=== PATIENT | female | born 1985 | race African-American/Black ===

== ENCOUNTER → 2020-05-08 | Outpatient (CLI) | payer OTHER ==
[2020-05-08 09:27] LABS: THYROID STIMULATING HORMONE 2.54 uIU/ML (0.358-3.740)
[2020-05-08 10:02] LABS: PROGESTERONE 41.39 NG/ML
[2020-05-08 10:03] LABS: ESTRADIOL 188.1 PG/ML
== END ==
LOC: M LAB 07:59
PROVIDERS: ATTEND Obstetrics & Gynecology Reproductive Endocrinology
DX: E28.9 Ovarian dysfunction, unspecified (principal)

== ENCOUNTER → 2020-05-11 | Outpatient (CLI) | payer OTHER ==
[2020-05-11 13:12] LABS: PROGESTERONE 39.92 NG/ML
[2020-05-11 13:13] LABS: ESTRADIOL 792.8 PG/ML
== END ==
LOC: M LAB 08:32
PROVIDERS: ATTEND Obstetrics & Gynecology Reproductive Endocrinology
DX: O09.00 Supervision of pregnancy with history of infertility, unspecified trimester (principal)

== ENCOUNTER → 2020-05-19 | Outpatient (CLI) | payer OTHER ==
--- NOTE | 2020-05-19 08:57 | REP ---
INDICATION: PREG DATING VIABILITY COMPARISON: None. TECHNIQUE: Transvaginal 1st trimester obstetrical ultrasound with color Doppler evaluation. FINDINGS: Anteverted uterus demonstrates decidual reaction and a small presumed empty gestational sac. Mean sac diameter of 5 mm corresponds to 5 weeks 2 days gestational age. Bilateral ovaries appear normal. No pelvic free fluid. IMPRESSION: Presumed empty gestational sac. Differential diagnosis includes early as well as blighted ovum and less likely pseudo gestational sac related to ectopic . Correlation with serial HCG levels recommended and repeat ultrasound as necessary. <Electronically signed by Alejandro Garcia > 05/19/20 [id number]
[2020-05-19 09:23] LABS: ESTRADIOL 200.8 PG/ML; PROGESTERONE 33.63 NG/ML
== END ==
LOC: M LAB 07:59
PROVIDERS: ATTEND Obstetrics & Gynecology Reproductive Endocrinology
DX: O09.00 Supervision of pregnancy with history of infertility, unspecified trimester (principal); O02.0 Blighted ovum and nonhydatidiform mole; Z3A.01 Less than 8 weeks gestation of pregnancy

== ENCOUNTER → 2020-05-25 | Outpatient (CLI) | payer OTHER ==
--- NOTE | 2020-05-25 08:29 | REP ---
INDICATION: PREG, VIABILITY PT HAVING LABS FIRST. COMPARISON: Comparison study 19 May 2020.. TECHNIQUE: Transvaginal sonography. FINDINGS: Uterine dimensions are 7.8 x 7.3 x 7.7 cm. There is an intrauterine gestational sac in the endometrium however it is essentially unchanged in the 6 days since the prior study, dimensions of 5.1 x 2.6 x 4.1 mm. The sac has poor decidual reaction. No embryonic pole or yolk sac is visible. This may represent anembryonic /missed AB. Right ovarian dimensions are 2.9 x 2.0 x 2.1 cm. Right ovary has a normal appearance. The left ovary measures 2.5 x 1.5 x 2.3 cm and appears morphologically normal as well. IMPRESSION: Endometrial gestational sac without embryonic pole or yolk sac essentially unchanged from the study done 6 days prior. viability cannot be confirmed. Recommend follow-up scan. <Electronically signed by Prateek Reed > 05/25/20 [id number]
[2020-05-25 11:26] LABS: PROGESTERONE 23.88 NG/ML; THYROID STIMULATING HORMONE 0.943 uIU/ML (0.358-3.740)
[2020-05-25 11:46] LABS: ESTRADIOL 1219.3 PG/ML
== END ==
LOC: M RAD 06:58 → M LAB 06:58
PROVIDERS: ATTEND Obstetrics & Gynecology Reproductive Endocrinology
DX: O09.00 Supervision of pregnancy with history of infertility, unspecified trimester (principal)

== ENCOUNTER → 2020-06-05 | Outpatient (CLI) | payer OTHER | LOC: M LAB 08:07 | PROVIDERS: ATTEND Obstetrics & Gynecology Reproductive Endocrinology | DX: O02.1 Missed abortion (principal) ==

== ENCOUNTER → 2020-06-10 | Outpatient (CLI) | payer OTHER | LOC: M LAB 10:05 | PROVIDERS: ATTEND Obstetrics & Gynecology Reproductive Endocrinology | DX: O02.1 Missed abortion (principal) ==

== ENCOUNTER → 2020-06-17 | Outpatient (CLI) | payer OTHER | LOC: M LAB 08:26 | PROVIDERS: ATTEND Obstetrics & Gynecology Reproductive Endocrinology | DX: O02.81 Inappropriate change in quantitative human chorionic gonadotropin (hCG) in early pregnancy (principal) ==

== ENCOUNTER → 2020-06-25 | Outpatient (CLI) | payer OTHER | LOC: M LAB 08:10 | PROVIDERS: ATTEND Obstetrics & Gynecology Reproductive Endocrinology | DX: O02.1 Missed abortion (principal) ==

== ENCOUNTER → 2020-07-21 | Outpatient (CLI) | payer OTHER ==
[2020-07-21 10:37] LABS: ESTRADIOL 220.7 PG/ML; PROGESTERONE 28.16 NG/ML
== END ==
LOC: M LAB 08:13
PROVIDERS: ATTEND Obstetrics & Gynecology Reproductive Endocrinology
DX: E28.9 Ovarian dysfunction, unspecified (principal)

== ENCOUNTER → 2020-07-27 | Outpatient (CLI) | payer OTHER ==
[2020-07-27 14:30] LABS: PROGESTERONE 31.22 NG/ML
== END ==
LOC: M LAB 07:35
PROVIDERS: ATTEND Obstetrics & Gynecology Reproductive Endocrinology
DX: Z32.00 Encounter for pregnancy test, result unknown (principal)

== ENCOUNTER → 2020-07-29 | Outpatient (CLI) | payer OTHER ==
[2020-07-29 10:38] LABS: ESTRADIOL 195.1 PG/ML; PROGESTERONE 25.7 NG/ML; THYROID STIMULATING HORMONE 1.26 uIU/ML (0.358-3.740)
== END ==
LOC: M LAB 07:57
PROVIDERS: ATTEND Obstetrics & Gynecology Reproductive Endocrinology
DX: Z32.01 Encounter for pregnancy test, result positive (principal)

== ENCOUNTER → 2020-08-05 | Outpatient (CLI) | payer OTHER ==
--- NOTE | 2020-08-05 10:11 | REP ---
INDICATION: , #SACS, #HB, VIABILITY / LABS 1ST. TECHNIQUE: Transvaginal only FINDINGS: Within the endometrial cavity there are 3 distinct anechoic structures each having increased echoes surrounding them consistent with decidual reaction is. Within each of the gestational sacs a yolk sac is identified. The mean gestational sac dimension of yolk sac a is consistent with a 5 week 5 day gestational age. No pole or cardiac activity was identified. The mean gestational sac dimension of yolk sac be is consistent with a 5 week 5 day gestational age. No pole or cardiac activity was identified. The mean gestational sac of yolk sac see is consistent with a 5 week 5 day gestational age. No pole or cardiac activity was identified. No chorionic or subchorionic abnormality was identified. Right ovary measures 3.5 x 1.6 x 1.6 cm and is within normal limits with an RI of 0.67. Left ovary measures 2.8 x 2.4 x 1.7 cm and is within normal limits with an RI of 0.68. No free fluid is identified. IMPRESSION: Triplet gestation as described above. <Electronically signed by Wally Abraham > 08/05/20 [id number]
[2020-08-05 10:59] LABS: ESTRADIOL 249.7 PG/ML; PROGESTERONE 50.39 NG/ML
== END ==
LOC: M RAD 08:09
PROVIDERS: ATTEND Obstetrics & Gynecology Reproductive Endocrinology
DX: O09.00 Supervision of pregnancy with history of infertility, unspecified trimester (principal)

== ENCOUNTER → 2020-08-12 | Outpatient (CLI) | payer OTHER ==
[2020-08-12 09:53] LABS: ESTRADIOL 258.4 PG/ML; PROGESTERONE 53.52 NG/ML
--- NOTE | 2020-08-12 16:06 | REP ---
INDICATION: AFTER POSITIVE RESULT. COMPARISON: 08/05/2020. TECHNIQUE: Transvaginal ultrasound performed to evaluate intrauterine gestations. FINDINGS: Once again there are 3 intrauterine gestational sacs containing viable poles. Estimated gestational age based on the today's measurements is 6 weeks 1 day. EDC 04/06/2021. Fetus a: [place]rump length 6 mm equals 6 weeks 3 days. heart rate 101 beats per minute. Fetus B: [place]rump length 4 mm equals 6 weeks 1 day. heart rate 114 beats per minute. Fetus C: [place]rump length 5 mm equals 6 weeks 2 days. heart rate 133 beats per minute. There is no subchorionic hemorrhage. The ovaries appear normal with no evidence of ovarian torsion with duplex Doppler evaluation. IMPRESSION: Viable intrauterine triplet gestation. <Electronically signed by Mat Alcocer > 08/12/20 [id number]
== END ==
LOC: M RAD 08:25
PROVIDERS: ATTEND Obstetrics & Gynecology Reproductive Endocrinology
DX: O30.109 Triplet pregnancy, unspecified number of placenta and unspecified number of amniotic sacs, unspecified trimester (principal); Z36.9 Encounter for antenatal screening, unspecified; Z3A.01 Less than 8 weeks gestation of pregnancy

== ENCOUNTER → 2020-08-19 | Outpatient (CLI) | payer OTHER ==
[2020-08-19 13:15] LABS: ESTRADIOL 377.3 PG/ML
[2020-08-19 13:44] LABS: PROGESTERONE 91.92 NG/ML
== END ==
LOC: M LAB 11:23
PROVIDERS: ATTEND Obstetrics & Gynecology Reproductive Endocrinology
DX: O09.00 Supervision of pregnancy with history of infertility, unspecified trimester (principal); Z3A.00 Weeks of gestation of pregnancy not specified

== ENCOUNTER 2020-09-29 18:12 | Emergency (ER) | payer OTHER ==
[~2020-09-29] VITALS: Ht 160 cm; Wt 75.8 kg
[2020-09-29] MEDS ORDERED: ASPI81CH33 PO (18:18)
[2020-09-29] MEDS ORDERED: PRENTAB53 PO (18:18)
[2020-09-29] MEDS ORDERED: FAMO10TA50 PO (18:19)
[2020-09-29] MEDS ORDERED: FOLI1TAB11 PO (18:19)
[2020-09-29] MEDS ORDERED: NALT50TA4 PO (18:21)
[2020-09-30 01:29] LABS: CHLAMYDIA DNA AMPLIFICATION NEGATIVE (NEGATIVE); GC DNA AMPLIFICATION NEGATIVE (NEGATIVE)
--- NOTE | 2020-09-30 01:54 | REPVR ---
PROCEDURE INFORMATION: Exam: US First Trimester, Transabdominal Exam date and time: 09/30/2020 12:21 AM Age: 35 years old Clinical indication: complicated by abdominal or pelvic pain; Lower; Second trimester; Gestational age or lmp: 13 w; ; Additional info: 13 weeks, pelvic pain TECHNIQUE: Imaging protocol: Real-time transabdominal obstetrical ultrasound of the maternal pelvis and a first trimester , less than 14 weeks 0 days, with image documentation. COMPARISON: 1. TRANSVAGINAL US 08/12/2020 3:28 PM 2. TRANSVAGINAL US 08/05/2020 9:28 AM FINDINGS: Gestation: There is a twin intrauterine gestation. Fetus A is located on the right. Embryonic/ heart rate: cardiac activity is detected at 158 bpm. Extra-embryonic membranes/Placenta: Anterior/right lateral placenta. No placenta previa. Amniotic fluid: Amniotic fluid is normal for gestational age. BIOMETRY: Gestational age (AUA): Estimated gestational age of fetus A is 13 weeks and 4 days. Estimated weight: Estimated weight is 78 g. IMPRESSION: Live twin intrauterine gestation with fetus A measuring 13 weeks and 4 days. PROCEDURE INFORMATION: Exam: US First Trimester, Transabdominal. Additional Gestation. Exam date and time: 09/30/2020 12:21 AM Age: 35 years old Clinical indication: complicated by abdominal or pelvic pain; Lower; Second trimester; Gestational age or lmp: 13 w; ; Additional info: 13 weeks, pelvic pain TECHNIQUE: Imaging protocol: Real-time transabdominal obstetrical ultrasound of the maternal pelvis and a first trimester with image documentation. Additional gestation was evaluated. COMPARISON: 1. TRANSVAGINAL US 08/12/2020 3:28 PM 2. TRANSVAGINAL US 08/05/2020 9:28 AM FINDINGS: GESTATION: Number of fetuses: 2 Multifetal identity: Fetus B Heart rate: cardiac diffuse the is detected at 156 bpm. Presentation: Fetus B is located on the left and demonstrates breech presentation. Extra-embryonic membranes/Placenta: Placenta is located anteriorly on the left. No previa. Amniotic fluid: Amniotic and coelomic fluid are normal for gestational age. BIOMETRY: Gestational age (AUA): Gestational age [place] length: Estimated gestational age of twin B is 13 weeks and 2 days. Estimated weight: Estimated weight is 71 g. IMPRESSION: Fetus B measures 13 weeks and 2 days. Electronically signed by: Terry Hahn On 09/30/2020 01:53:49 AM
[2020-09-30 04:23] VITALS: BP 135/82
== END 2020-09-30 04:24 | disposition home or self-care (01) ==
LOC: M ED 18:12
DX: O99.891 Other specified diseases and conditions complicating pregnancy (principal); R10.9 Unspecified abdominal pain; O99.611 Diseases of the digestive system complicating pregnancy, first trimester; K21.9 Gastro-esophageal reflux disease without esophagitis; O30.001 Twin pregnancy, unspecified number of placenta and unspecified number of amniotic sacs, first trimester; O09.511 Supervision of elderly primigravida, first trimester; Z3A.13 13 weeks gestation of pregnancy; Z79.82 Long term (current) use of aspirin; Z79.899 Other long term (current) drug therapy

== ENCOUNTER 2021-02-21 18:05 | Emergency (ER) | payer OTHER ==
[~2021-02-21] VITALS: Ht 160 cm; Wt 80.9 kg
[~2021-02-21 18:05] MED LIST: ASPI81CH33 PO; FAMO10TA50 PO; FOLI1TAB11 PO; NALT50TA4 PO; PRENTAB53 PO
--- OUTSIDE RECORDS SUMMARY | 2021-02-21 18:13 | CCD | Continuity of Care Document ---
Author Author Soil Conservation Teacher, [employer] Organization Unknown Address Unknown Phone Unavailable Care Team Providers Care Banquet Chef Name Role Phone Lucho Stiles MD Unavailable Unavailable Xin Rojas Unavailable Unavailable Problems In vitro fertilization (Z31.83) (V26.81) Maria Del Rosario Rojas Twin , antepartum (O30.009) Xin Rojas (651.03) Allergies and Adverse Reactions No Allergy Information Available Medications No Medication Information Available Social History No Social History Information Available Tobacco smoking consumption unknown Female Plan of Treatment DOPPLER COLOR FLOW MAPPING (39405) Start: 05-Jan-2021 Int ent DOPPLER ECHO EXAM (59444) Start: 05-Jan-2021 Intent ECHO EXAM OF HEART, 2D (24752) Start: 05-Jan-2021 I ntent ECHO EXAM OF HEART, 2D (46378) Start: 05-Jan-2021 I ntent ECHO EXAM OF HEART, DOPPLER Start: 05-Jan-2021 Inte nt COMPLETE (70562) ECHO EXAM OF HEART, DOPPLER Start: 05-Jan-2021 Inte nt COMPLETE (91118) Results No Known Results No Result Information Available Vital Signs No Vital Observation Information Available Encounters Procedure Only 05-Jan-2021 14:00 Encounter Diagnosis:In vitro To 05-Jan-2021 15:20 fertilization, Twin , Pediatric Cardiology antepartum Assoc [employer] Payers [employer] Number: NONE [address] [facility] [id number] [place] S tel: Emily Phillip [address] [facility] 1360 3 tel:
--- OUTSIDE RECORDS SUMMARY | 2021-02-21 18:13 | CCD | Continuity of Care Document ---
Author Author L D Rn, [employer] Organization Unknown Address Unknown Phone Unavailable Care Team Providers Care Oxygen Therapist Name Role Phone Linsey OWENS, Lucho Unavailable Unavailable Linsey OWENS, Lucho Unavailable Unavailable Mayra Soler MD Unavailable Xin Rojas Unavailable Unavailable Problems In vitro fertilization (Z31.83) (V26.81) Maria Del Rosario Rojas Twin gestation, dichorionic diamniotic MD Ryder Fra nk C (O30.049) (651.00) Twin , antepartum (O30.009) Xin Rojas (651.03) Allergies and Adverse Reactions No Known Drug Allergies (Allergy) Onset: 01-Feb-2021 Medications Aspirin EC Low Strength Famotidine Procedures Echo cardiovasc w/wo m-mode Date: 05-Jan-2021 recording Status: Completed 01-Feb-2021 MD John Soler C - Procedure Note: See Note; [facility] Alyssa ECHOCARDIOGRAPHY REPORT Pat.Name: Emily Phillip Pat.ID: [id number] .Date: 01/05/2021 Exam Time: 2:26:00 P M Study Type: Echo Age: 3 1985,35Y Sex: FEMALE Sonogrphr: Xin Rojas RDCS Pat. Stat.:Outpatient CPT - 4: [id number] Order ID: [id number] Reason for Study: 27 4/7 weeks twin gestation. SUMMARY: 2D STUDY: This is a twin gestation. Twin A is in breech position and in the right side of the maternal abdomnen. Twin B is in breech position, as well, and is in the left side of the maternal abdomen. This is the report of the findings of Fetus B. There is levocardia with normal atrial situs and normal chamber/vessel relationships. Th e chambers are normal in size, thickness and systolic function. Venous return is normal. There is a patent foramen ovale with a mobile flap bowing leftward in normal fashion. The ventricular septum appears intact. The cardiac valves appear normal. The outflow tracts are patent. The pulmonary artery and branches are normal in size. The aortic and ductal arches are widely patent. There is no pericardial effusion. The cardiac rhythm is regular throughout the study with synchronous atrial and ventricular contractions and a heart rate of 161 bpm, consistent wit h sinus rhythm. COLOR DOPPLER STUDY: The color Doppler study reveals no significant valve incompetence. There is no interventricular shunt. The pulsed/CW Doppler study reveals no valvar stenosis. The umbilical artery pulsatility index is 45-11/25 = 1.4 which is within normal limits. Umbilica l venous flow appears normal. SUMMARY: Twin gestation, 27 4/7 weeks gestation Normal 2D/color Doppler study of Twin B A normal study cannot exclude the following with certainty: small or moderate sized septal defects, minor valvar abnormalities, patent ductus arteriosus, coarctation of the aorta, pulmonary or systemic venous return anomalies, and arterial branch anomalies. MEASUREMENTS: DOPPLER Heart Rate HR 160 bpm Signed 02/01/2021 05:48 AM John Soler M.D . ; This result contains an attachment that could not be included. Social History No Social History Information Available Tobacco smoking consumption unknown Female Plan of Treatment DOPPLER COLOR FLOW MAPPING (00407) Start: 05-Jan-2021 Int ent DOPPLER ECHO EXAM (73161) Start: 05-Jan-2021 Intent ECHO EXAM OF HEART, 2D (23997) Start: 05-Jan-2021 I ntent ECHO EXAM OF HEART, 2D (16897) Start: 05-Jan-2021 I ntent ECHO EXAM OF HEART, DOPPLER Start: 05-Jan-2021 Inte nt COMPLETE (36422) ECHO EXAM OF HEART, DOPPLER Start: 05-Jan-2021 Inte nt COMPLETE (61871) Results No Known Results No Result Information Available Vital Signs No Vital Observation Information Available Encounters Office Visit 01-Feb-2021 5:53 To Encounter Reason:Office Visit - Note for 01-Feb-2021 14:38 "Office Visit": I apologize for my delay Pediatric C ardiology in finalizing this report. one[facility] I am seeing Emily in consultation on January 05, 2021 for echocardiography of a di-di twin gestation facilitated with IVF.She is a 35 year old 2 para 0 who is now 27 4/7 weeks with an expected date of confinement of April 02, 2021. She is accompanied by her Jasson.Her is followed by Dr. Stiles at [place]. Her has been remarkable for the twin gestation and she has been wel l otherwise. Her medications are famotidine, a baby aspirin and vitamins. Delivery is planned at [facility]. Encounter Diagnosis:Twin gestation, dichorionic diamniotic Procedure Only 05-Jan-2021 14:00 Encounter Diagnosis:In vitro To 05-Jan-2021 15:20 fertilization, Twin , Pediatric Cardiology antepartum [employer] Payers [employer] Number: NONE [address] [facility] [id number] U S tel: Emily Phillip [address] [facility] 1360 3 tel:
--- OUTSIDE RECORDS SUMMARY | 2021-02-21 18:13 | CCD | Continuity of Care Document ---
Author Author Geek Squad Agent, [employer] Organization Unknown Address Unknown Phone Unavailable Care Team Providers Care Shoe Patternmaker Name Role Phone Lucho Stiles MD Unavailable Unavailable Xin Rojas Unavailable Unavailable Problems In vitro fertilization (Z31.83) (V26.81) Maria Del Rosario Rojas Twin , antepartum (O30.009) Xin Rojas (651.03) Allergies and Adverse Reactions No Allergy Information Available Medications No Medication Information Available Social History No Social History Information Available Tobacco smoking consumption unknown Female Plan of Treatment DOPPLER COLOR FLOW MAPPING (48286) Start: 05-Jan-2021 Int ent DOPPLER ECHO EXAM (78132) Start: 05-Jan-2021 Intent ECHO EXAM OF HEART, 2D (96157) Start: 05-Jan-2021 I ntent ECHO EXAM OF HEART, 2D (64863) Start: 05-Jan-2021 I ntent ECHO EXAM OF HEART, DOPPLER Start: 05-Jan-2021 Inte nt COMPLETE (39782) ECHO EXAM OF HEART, DOPPLER Start: 05-Jan-2021 Inte nt COMPLETE (16988) Results No Known Results No Result Information Available Vital Signs No Vital Observation Information Available Encounters Procedure Only 05-Jan-2021 14:00 Encounter Diagnosis:In vitro To 05-Jan-2021 15:20 fertilization, Twin , Pediatric Cardiology antepartum Assoc [employer] Payers [employer] Number: NONE [address] [facility] [id number] U S tel: Emily Phillip [address] [facility] 1360 3 tel:
--- OUTSIDE RECORDS SUMMARY | 2021-02-21 18:13 | CCD | Continuity of Care Document ---
Author Author Softball Umpire, [employer] Organization Unknown Address Unknown Phone Unavailable Care Team Providers Care Dross Skimmer Name Role Phone Lucho Stiles MD Unavailable Unavailable Lucho Stiles MD Unavailable Unavailable Xin Rojas Unavailable Unavailable Problems In vitro fertilization (Z31.83) (V26.81) Maria Del Rosario Rojas Twin , antepartum (O30.009) Xin Rojas (651.03) Allergies and Adverse Reactions No Allergy Information Available Medications No Medication Information Available Social History No Social History Information Available Tobacco smoking consumption unknown Female Plan of Treatment DOPPLER COLOR FLOW MAPPING (67854) Start: 05-Jan-2021 Int ent DOPPLER ECHO EXAM (75877) Start: 05-Jan-2021 Intent ECHO EXAM OF HEART, 2D (19120) Start: 05-Jan-2021 I ntent ECHO EXAM OF HEART, 2D (92386) Start: 05-Jan-2021 I ntent ECHO EXAM OF HEART, DOPPLER Start: 05-Jan-2021 Inte nt COMPLETE (73952) ECHO EXAM OF HEART, DOPPLER Start: 05-Jan-2021 Inte nt COMPLETE (67397) Results No Known Results No Result Information Available Vital Signs No Vital Observation Information Available Encounters Procedure Only 05-Jan-2021 14:00 Encounter Diagnosis:In vitro To 05-Jan-2021 15:20 fertilization, Twin , Pediatric Cardiology antepartum Assoc [facility] Payers [employer] Number: NONE [address] [facility] [id number] U S tel: Emily Phillip [address] [facility] 1360 3 tel:
--- OUTSIDE RECORDS SUMMARY | 2021-02-21 18:13 | CCD | Continuity of Care Document ---
Author Author Electrical Engineering Professor, [employer] Organization Unknown Address Unknown Phone Unavailable Care Team Providers Care Carbon Paper Interleafer Name Role Phone Lucho Stiles MD Unavailable Unavailable Xin Rojas Unavailable Unavailable Problems In vitro fertilization (Z31.83) (V26.81) Maria Del Rosario Rojas Twin , antepartum (O30.009) Xin Rojas (651.03) Allergies and Adverse Reactions No Allergy Information Available Medications No Medication Information Available Social History No Social History Information Available Tobacco smoking consumption unknown Female Plan of Treatment DOPPLER COLOR FLOW MAPPING (28501) Start: 05-Jan-2021 Int ent DOPPLER ECHO EXAM (42085) Start: 05-Jan-2021 Intent ECHO EXAM OF HEART, 2D (76334) Start: 05-Jan-2021 I ntent ECHO EXAM OF HEART, 2D (97857) Start: 05-Jan-2021 I ntent ECHO EXAM OF HEART, DOPPLER Start: 05-Jan-2021 Inte nt COMPLETE (92689) ECHO EXAM OF HEART, DOPPLER Start: 05-Jan-2021 Inte nt COMPLETE (58381) Results No Known Results No Result Information Available Vital Signs No Vital Observation Information Available Encounters Procedure Only 05-Jan-2021 14:00 Encounter Diagnosis:In vitro To 05-Jan-2021 15:20 fertilization, Twin , Pediatric Cardiology antepartum Assoc [employer] Payers [employer] Number: NONE [address] [facility] [id number] U S tel: Emily Phillip [address] [facility] 1360 3 tel:
--- OUTSIDE RECORDS SUMMARY | 2021-02-21 18:13 | CCD | Continuity of Care Document ---
Author Author Swaging Machine Operator, [employer] Organization Unknown Address Unknown Phone Unavailable Care Team Providers Care Research Rn Spec Name Role Phone Lucho Stiles MD Unavailable Unavailable Xin Rojas Unavailable Unavailable Problems In vitro fertilization (Z31.83) (V26.81) Maria Del Rosario Rojas Twin , antepartum (O30.009) Xin Rojas (651.03) Allergies and Adverse Reactions No Allergy Information Available Medications No Medication Information Available Social History No Social History Information Available Tobacco smoking consumption unknown Female Plan of Treatment DOPPLER COLOR FLOW MAPPING (78630) Start: 05-Jan-2021 Int ent DOPPLER ECHO EXAM (84894) Start: 05-Jan-2021 Intent ECHO EXAM OF HEART, 2D (50132) Start: 05-Jan-2021 I ntent ECHO EXAM OF HEART, 2D (41654) Start: 05-Jan-2021 I ntent ECHO EXAM OF HEART, DOPPLER Start: 05-Jan-2021 Inte nt COMPLETE (57115) ECHO EXAM OF HEART, DOPPLER Start: 05-Jan-2021 Inte nt COMPLETE (16581) Results No Known Results No Result Information Available Vital Signs No Vital Observation Information Available Encounters Procedure Only 05-Jan-2021 14:00 Encounter Diagnosis:In vitro To 05-Jan-2021 15:20 fertilization, Twin , Pediatric Cardiology antepartum Assoc [employer] Payers [employer] Number: NONE [address] [facility] [phone] U S tel: Emily Phillip [address] [facility] 1360 3 tel:
--- OUTSIDE RECORDS SUMMARY | 2021-02-21 18:13 | CCD | Continuity of Care Document ---
Author Author Plumbing And Heating Mechanic, [employer] Organization Unknown Address Unknown Phone Unavailable Care Team Providers Care Structural Mill Supervisor Name Role Phone Lucho Stiles MD Unavailable Unavailable Xin Rojas Unavailable Unavailable Problems In vitro fertilization (Z31.83) (V26.81) Maria Del Rosario Rojas Twin , antepartum (O30.009) Xin Rojas (651.03) Allergies and Adverse Reactions No Allergy Information Available Medications No Medication Information Available Social History No Social History Information Available Tobacco smoking consumption unknown Female Plan of Treatment DOPPLER COLOR FLOW MAPPING (40598) Start: 05-Jan-2021 Int ent DOPPLER ECHO EXAM (39878) Start: 05-Jan-2021 Intent ECHO EXAM OF HEART, 2D (09658) Start: 05-Jan-2021 I ntent ECHO EXAM OF HEART, 2D (64232) Start: 05-Jan-2021 I ntent ECHO EXAM OF HEART, DOPPLER Start: 05-Jan-2021 Inte nt COMPLETE (01281) ECHO EXAM OF HEART, DOPPLER Start: 05-Jan-2021 Inte nt COMPLETE (86820) Results No Known Results No Result Information Available Vital Signs No Vital Observation Information Available Encounters Procedure Only 05-Jan-2021 14:00 Encounter Diagnosis:In vitro To 05-Jan-2021 15:20 fertilization, Twin , Pediatric Cardiology antepartum Assoc [employer] Payers [employer] Number: NONE [address] [facility] [id number] U S tel: Emily Phillip [address] [facility] 1360 3 tel:
--- OUTSIDE RECORDS SUMMARY | 2021-02-21 18:14 | CCD ---
Author Author [facility] Organization [facility] Address Unknown Phone Unavailable Care Team Providers Care Physician Assistant Surgery Name Role Phone Nwogu, U Vikram DO Unavailable Unavailable Nwogu, U Vikram DO Unavailable Unavailable Nwogu, U Vikram DO Unavailable Unavailable Nwogu, U Vikram DO Unavailable Unavailable Nwogu, U Vikram DO Unavailable Unavailable Nwogu, U Vikram DO Unavailable Unavailable Nwogu, U Vikram DO Unavailable Unavailable Nwogu, U Vikram DO Unavailable Unavailable Nwogu, U Vikram DO Unavailable Unavailable Nwogu, U Vikram DO Unavailable Unavailable Nwogu, U Vikram DO Unavailable Unavailable Nwogu, U Vikram DO Unavailable Unavailable Nwogu, U Vikram DO Unavailable Unavailable Nwogu, U Vikram DO Unavailable Unavailable Nwogu, U Vikram DO Unavailable Unavailable Nwogu, U Vikram DO Unavailable Unavailable Nwogu, U Vikram DO Unavailable Unavailable Nwogu, U Vikram DO Unavailable Unavailable Nwogu, U Vikram DO Unavailable Unavailable Nwogu, U Vikram DO Unavailable Unavailable WERO WEINBERG MD Unavailable Unavailable WERO WEINBERG MD Unavailable Unavailable WERO WEINBERG MD Unavailable Unavailable WERO WEINBERG MD Unavailable Unavailable WERO WEINBERG MD Unavailable Unavailable WERO WEINBERG MD Unavailable Unavailable WERO WEINBERG MD Unavailable Unavailable WERO WEINBERG MD Unavailable Unavailable WERO WEINBERG MD Unavailable Unavailable WERO WEINBERG MD Unavailable Unavailable WERO WEINBERG MD Unavailable Unavailable WERO WEINBERG MD Unavailable Unavailable WERO WEINBERG MD Unavailable Unavailable WERO WEINBERG MD Unavailable Unavailable WERO WEINBERG MD Unavailable Unavailable WERO WEINBERG MD Unavailable Unavailable WERO WEINBERG MD Unavailable Unavailable WERO WEINBERG MD Unavailable Unavailable WERO WEINBERG MD Unavailable Unavailable WERO WEINBERG MD Unavailable Unavailable WERO WEINBERG MD Unavailable Unavailable WERO WEINBERG MD Unavailable Unavailable WERO WEINBERG MD Unavailable Unavailable WERO WEINBERG MD Unavailable Unavailable WERO WEINBERG MD Unavailable Unavailable WERO WEINBERG MD Unavailable Unavailable WERO WEINBERG MD Unavailable Unavailable WERO WEINBERG MD Unavailable Unavailable WERO WEINBERG MD Unavailable Unavailable WERO WEINBERG MD Unavailable Unavailable WERO WEINBERG MD Unavailable Unavailable WERO WEINBERG MD Unavailable Unavailable WERO WEINBERG MD Unavailable Unavailable WERO WEINBERG MD Unavailable Unavailable EWRO WEINBERG MD Unavailable Unavailable WERO WEINBERG MD Unavailable Unavailable WERO WEINBERG MD Unavailable Unavailable WERO WEINBERG MD Unavailable Unavailable WERO WEINBERG MD Unavailable Unavailable WERO WEINBERG MD Unavailable Unavailable WERO WEINBERG MD Unavailable Unavailable WERO WEINBERG MD Unavailable Unavailable WERO WEINBERG MD Unavailable Unavailable WERO WEINBERG MD Unavailable Unavailable WERO WEINBERG MD Unavailable Unavailable WERO WEINBERG MD Unavailable Unavailable WERO WEINBERG MD Unavailable Unavailable WERO WEINBERG MD Unavailable Unavailable WERO WEINBERG MD Unavailable Unavailable WERO WEINBERG MD Unavailable Unavailable WERO WEINBERG MD Unavailable Unavailable WERO WEINBERG MD Unavailable Unavailable WERO WEINBERG MD Unavailable Unavailable WERO WEINBERG MD Unavailable Unavailable WERO WEINBERG MD Unavailable Unavailable WERO WEINBERG MD Unavailable Unavailable WERO WEINBERG MD Unavailable Unavailable WERO WEINBERG MD Unavailable Unavailable WERO WEINBERG MD Unavailable Unavailable WERO WEINBERG MD Unavailable Unavailable WERO WEINBERG MD Unavailable Unavailable WERO WEINBERG MD Unavailable Unavailable WERO WEINBERG MD Unavailable Unavailable WERO WEINBERG MD Unavailable Unavailable WERO WEINBERG MD Unavailable Unavailable WERO WEINBERG MD Unavailable Unavailable WERO WEINBERG MD Unavailable Unavailable WERO WEINBERG MD Unavailable Unavailable WERO WEINBERG MD Unavailable Unavailable WERO WEINBERG MD Unavailable Unavailable WERO WEINBERG MD Unavailable Unavailable WERO WEINBERG MD Unavailable Unavailable WERO WEINBERG MD Unavailable Unavailable WERO WEINBERG MD Unavailable Unavailable WERO WEINBREG MD Unavailable Unavailable WERO WEINBERG MD Unavailable Unavailable WERO WEINBERG MD Unavailable Unavailable WERO WEINBERG MD Unavailable Unavailable WERO WEINBERG MD Unavailable Unavailable WERO WEINBREG MD Unavailable Unavailable WERO WEINBERG MD Unavailable Unavailable WERO WEINBERG MD Unavailable Unavailable WERO WEINBERG MD Unavailable Unavailable WERO WEINBERG MD Unavailable Unavailable WERO WEINBERG MD Unavailable Unavailable WERO WEINBERG MD Unavailable Unavailable WERO WEINBERG MD Unavailable Unavailable WERO WEINBERG MD Unavailable Unavailable WERO WEINBERG MD Unavailable Unavailable WERO WEINBERG MD Unavailable Unavailable WERO WEINBERG MD Unavailable Unavailable WERO WEINBERG MD Unavailable Unavailable WERO WEINBERG MD Unavailable Unavailable WERO WEINBERG MD Unavailable Unavailable ANGELINA MAIER Unavailable Unavailable Jazmín WATTERS MD Unavailable Unavailable Jazmín WATTERS MD Unavailable Unavailable Jazmín WATTERS MD Unavailable Unavailable Jazmín WATTERS MD Unavailable Unavailable Jazmín WATTERS MD Unavailable Unavailable Jazmín WATTERS MD Unavailable Unavailable Jazmín WATTERS MD Unavailable Unavailable Jazmín WATTERS MD Unavailable Unavailable Jazmín WATTERS MD Unavailable Unavailable Jazmín WATTERS MD Unavailable Unavailable Jazmín WATTERS MD Unavailable Unavailable Jazmín WATTERS MD Unavailable Unavailable DUONGJazmín Carroll MD Unavailable Unavailable DUONGJazmín TOMLINSON MD Unavailable Unavailable DUONGJazmín Carroll MD Unavailable Unavailable DUONGJazmín Carroll MD Unavailable Unavailable DUONGJazmín Carroll MD Unavailable Unavailable DUONGJazmín MD Unavailable Unavailable DUONGJazmín MD Unavailable Unavailable DUONGJazmín MD Unavailable Unavailable DUONGJazmín MD Unavailable Unavailable DUONGJazímn Carroll MD Unavailable Unavailable DUONGJazmín MD Unavailable Unavailable DUONGJazmín MD Unavailable Unavailable DUONGJazmín MD Unavailable Unavailable DUONGJazmín MD Unavailable Unavailable DUONGJazmín MD Unavailable Unavailable DUONGJazmín MD Unavailable Unavailable DUONGJazmín MD Unavailable Unavailable DUONGJazmín MD Unavailable Unavailable DUONGJazmín MD Unavailable Unavailable NOSOVITCH Rivas PADILLA MD Unavailable Unavailable NOSOVITCH Rivas PADILLA MD Unavailable Unavailable NOSOVITCH Rivas PADILLA MD Unavailable Unavailable NOSOVITCH Rivas PADILLA MD Unavailable Unavailable NOSOVITCH Rivas PADILLA MD Unavailable Unavailable NOSOVITCH Rivas PADILLA MD Unavailable Unavailable NOSOVITCH Rivas PADILLA MD Unavailable Unavailable NOSOVITCH Rivas PADILLA MD Unavailable Unavailable NOSOVITCH Rivas PADILLA MD Unavailable Unavailable NOSOVITCH Rivas PADILLA MD Unavailable Unavailable NOSOVITCH Rivas PADILLA MD Unavailable Unavailable NOSOVITCH Rivas PADILLA MD Unavailable Unavailable NOSOVITCH Rivas PADILLA MD Unavailable Unavailable NOSOVITCH Rivas PADILLA MD Unavailable Unavailable NOSOVITCH Rivas PADILLA MD Unavailable Unavailable NOSOVITCH Rivas PADILLA MD Unavailable Unavailable NOSOVITCH Rivas PADILLA MD Unavailable Unavailable NOSOVITCH Rivas PADILLA MD Unavailable Unavailable NOSOVITCH Rivas PADILLA MD Unavailable Unavailable NOSOVITCH Rivas PADILLA MD Unavailable Unavailable NOSOVITCH Rivas PADILLA MD Unavailable Unavailable NOSOVITCH Rivas PADILLA MD Unavailable Unavailable NOSOVITCH Rivas PADILLA MD Unavailable Unavailable NOSOVITCH Rivas PADILLA MD Unavailable Unavailable NOSOVITCH Rivas PADILLA MD Unavailable Unavailable NOSOVITCH Rivas PADILLA MD Unavailable Unavailable NOSOVITCH Rivas PADILLA MD Unavailable Unavailable NOSOVITCH Rivas PADILLA MD Unavailable Unavailable NOSOVITCH Rivas PADILLA MD Unavailable Unavailable NOSOVITCH Rivas PADILLA MD Unavailable Unavailable NOSOVITCH Rivas PADILLA MD Unavailable Unavailable [place] Unavailable Unavailable RUBEN STILES Unavailable Unavailable CHANLIECCO, C JORGE MD Unavailable Unavailable CHANLIECCO, C JORGE MD Unavailable Unavailable CHANLIECCO, C JORGE MD Unavailable Unavailable CHANLIECCO, C JORGE MD Unavailable Unavailable CHANLIECCO, C JORGE MD Unavailable Unavailable CHANLIECCO, C JORGE MD Unavailable Unavailable CHANLIECCO, C JORGE MD Unavailable Unavailable CHANLIECCO, C JORGE MD Unavailable Unavailable CHANLIECCO, C JORGE MD Unavailable Unavailable CHANLIECCO, C JORGE MD Unavailable Unavailable CHANLIECCO, C JORGE MD Unavailable Unavailable Re-disclosure Warning The records that you are about to access may contain information from federally-assisted alcohol or drug abuse programs. If such information is present, then the following federally mandated warning applies: This information has been disclosed to you from records protected by federal confidentiality rules (42 CFR part 2). The federal rules prohibit you from making any further disclosure of this information unless further disclosure is expressly permitted by the written consent of the person to whom it pertains or as otherwise permitted by 42 CFR part 2. A general authorization for the release of medical or other information is NOT sufficient for this purpose. The Federal rules restrict any use of the information to criminally investigate or prosecute any alcohol or drug abuse patient.The records that you are about to access may contain highly sensitive health information, the redisclosure of which is protected by Article 27-F of the [facility] Public Health law. If you continue you may have access to information: Regarding HIV / AIDS; Provided by facilities licensed or operated by the [facility] Office of Mental Health; or Provided by the [facility] Office for People With Developmental Disabilities. If such information is present, then the following [facility] mandated warning applies: This information has been disclosed to you from confidential records which are protected by state law. State law prohibits you from making any further disclosure of this information without the specific written consent of the person to whom it pertains, or as otherwise permitted by law. Any unauthorized further disclosure in violation of state law may result in a fine or senior living sentence or both. A general authorization for the release of medical or other information is NOT sufficient authorization for further disc losure. Allergies and Adverse Reactions Type Description Substance Reaction Status Data Source(s ) Allergy Allergy No Known Drug Allergies Active [facility] ([facility]) No Known Allergies No Known Allergies [facility] Encounters Encounter Providers Location Date Indications Data Source(s ) Outpatient 02/15/2021 03:45:44 PM EST - 021 04:11:31 PM EST [place]a ([facility]) Outpatient<td><content ID="_[id number]">Office Visit</content>
<content><content styleCode="xLabel xSecondary">Encounter Reason:</content><content ID="_[id number]" styleCode="xSecondary">Office Visit - Note for "Office Visit": I apologize for my delay in finalizing this report. I am seeing Rox in consultation on January 05, 2021 for echocardiography of a di-di twin gestation facilitated with IVF.She is a 35 year old 2 para 0 who is now 27 4/7 weeks with an expected date of confinement of April 02, 2021. She is accompanied by her Jasson.Her is followed by Dr. Stiles at [place]. Her has been remarkable for the twin gestation and she has been well otherwise. Her medications are famotidine, a baby aspirin and vitamins. Delivery is planned at [facility].</content></content>
<co ntent><content styleCode="xSecondary xLabel">Encounter Diagnosis:</content><content ID="_[id number]" styleCode="xSecondary">Twin gestation, dichorionic diamniotic</content> </content></td><td><content styleCode="xSecondary">01-Feb-2021 5:53 </content><content styleCode="xLabel xSecondary"> To </content><content styleCode="xSecondary">01-Feb-2021 14:38</content>
<content styleCode="xSecondary">[facility]</content>
</td><td></td> [facility] 02/01/2021 05:53:43 AM EDT - 02/01/2021 02:38:50 PM EDT Office Visit - Note for "Office Visit": I apologize for my delay in finalizing this report. I am seeing Rox in consultation on January 05, 2021 for echocardiography of a di-di twin gestation facilitated with IVF.She is a 35 year old 2 para 0 who is now 27 4/7 weeks with an expected date of confinement of April 02, 2021. She is accompanied by her Jasson.Her is followed by Dr. Stiles at [place]. Her has been remarkable for the twin gestation and she has been well otherwise. Her medications are famotidine, a baby aspirin and vitamins. Delivery is planned at [facility].Twin gestation, dichorionic diamniotic [facility]) Office Visit - Note for "Office Visit": I apologize for my delay in finalizing this report. I am seeing Nickleola in consultation on January 05, 2021 for echocardiography of a di-di twin gestation facilitated with IVF.She is a 35 year old 2 para 0 who is now 27 4/7 weeks with an expected date of confinement of April 02, 2021. She is accompanied by her Jasson.Her is followed by Dr. Stiles at [place]. Her has been remarkable for the twin gestation and she has been well otherwise. Her medications are famotidine, a baby aspirin and vitamins. Delivery is planned at [facility]. Twin gestation, dichorionic diamniotic <td><content ID="_[id number]">Procedure Only</content>
<content><content styleCode="xSecondary xLabel">Encounter Diagnosis:</content><content [id number]" styleCode="xSecondary">In vitro fertilization</content><content styleCode="xSecondary">, </content><content [id number]" styleCode="xSecondary">Twin , antepartum</content></content></td><td><content styleCode="xSecondary">05-Jan-2021 14:00 </content><content styleCode="xLabel xSecondary"> To </content><content styleCode="xSecondary">05-Jan-2021 15:20</content>
<content styleCode="xSecondary">[facility]</content>
</td><td></td>Procedure Only [facility] 01/05/2021 02:00:00 PM EDT - 01/05/2021 03:20:31 PM EDT Twin , antepartumIn vitro fertilization [facility] ([facility]) Twin , antepartum In vitro fertilization Outpatient Attender: ALVARO LOCO JRReferrer: CASPER STILES [id number] 12/17/2020 12:00:00 AM EDT - 12/17/2020 04:29:58 PM [facility] Outpatient Attender: ANGELINA MAIERReferrer: CASPER STILES 12/17/2020 12:00:00 AM [facility] Outpatient Attender: Vikram MCRCARY ttender: RONNI WATTERS MDConsultant: [facility] 11/20/2020 07:57:00 AM EDT - 11/20/2020 11:30:00 AM EDT [facility] Patient discharged. Emergency Attender: JORGE LEE MDConsultant: [facility] 10/02/2020 08:12:00 PM EDT - 10/02/2020 09:05:00 PM EDT [facility] Patient discharged. Outpatient Attender: MARIPOSA WEINBERG MDConsultant: [facility] NADIR 08/19/2020 09:16:00 AM EDT - 08/19/2020 10:16:00 AM EDT [facility] Immunizations Vaccine Date Status Description Data Source(s) COVID-19 VACCINE Moderna 01/18/2021 12:00:00 AM EDT completed [facility] Vaccine Series Complete: YESThis Data wa s Submitted to [facility] Via [employer]. COVID-19 VACCINE Moderna 12/19/2020 12:00:00 AM EDT completed [facility] Vaccine Series Complete: NOThis Data was Submitted to [facility] [employer]. Medications No Information Insurance Providers Payer name Policy type / Coverage type Policy ID Covered constitution party ID Covered constitution party's relationship to la Policy La Plan Information U [id number] Self [id number] FFS Self Pay [id number] Self [id number] [facility] ACTIVE DUTY [id number] SP [id number] [facility] HUMANA - O/P [id number] 18 [id number] [facility] HUMANA [id number] SP [id number] [employer] [place] O [id number] S [id number] Problems, Conditions, and Diagnoses Code Display Name Description Problem Type Effective Dates Data Source(s) Z3A21 21 weeks gestation of 21 weeks gestation of Diagnosis 11/20/2020 07:57:00 AM EDT [facility] R102 Pelvic and perineal pain Pelvic and perineal pain Diag nosis 11/20[facility]2020 [id number] Other specified related condit ions, second trimester Other specified related conditions, second trimester Diagnosis 11/20/2020 07:57:00 AM EDT [facility] T08709 Twin , unable to de termine number of placenta and number of amniotic sacs, second trimester Twin , unable to determine numb er of placenta and number of amniotic sacs, second trimester Diagnosis 11/20/2020 07:57:00 AM EDT [facility] 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 Diagnosis 10/02/2020 08:12:00 PM EDT [facility] Z3A14 14 weeks gestation of 14 weeks gestation of Diagnosis 10/02/2020 08:12:00 PM EDT [facility] O2242 Hemorrhoids in , second trimest er Hemorrhoids in , second trimester Diagnosis 10/02/2020 08:12:00 PM EDT [facility] O0900 Supervision of wit h history of infertility, unspecified trimester Supervision of with history of infertility, unspecified trimester Diagnosis 08/19/2020 09:16:00 AM EDT [facility] Surgeries/Procedures Procedure Description Date Indications Data Source(s) OFFICE CONSULTATION NEW/ESTAB PATIENT 30 MIN 02/01/2021 05:53:43 AM EDT - 02/01/2021 02:38:50 PM EDT [facility]) Echo cardiovasc w/wo m-mode recording <td colspa n="2"> Echo cardiovasc w/wo m-mode recording</td><td> Date: 05-Jan-2021 Status: Completed 01-Feb-2021 </td> 01/05/2021 02:26:00 PM EDT - 02/01/2021 05:48:23 AM EDT [facility] ([facility]) Results ID Date Data Source [id number] 02/15/2021 04:00:00 PM EST [facility] Name Value Range Interpretation Code Description Data Lupe rce(s) Supporting Document(s) SARS-CoV-2 RNA Resp Ql ALISA+probe NOT DETECTED [facility] This lab was ordered by NASEEM pike and reported by NASEEM Whyte. ID Date Data Source [id number] 01/07/2021 07:23:00 PM EDT [facility] Name Value Range Interpretation Code Description Data Lupe rce(s) Supporting Document(s) Progress Note [facility] CKXUZg7xCrPWHpOh10/AYWdoZSYba4JyYVadUIk9HEoiIHUzR8WnMUI4iR6qNXW4UNeXHfEsUcQsDXBq lbm [file] [id number]= ID Date Data Source [id number] 12/22/2020 10:00:23 PM EDT [facility] Name Value Range Interpretation Code Description Data Lupe rce(s) Supporting Document(s) Progress Note [facility] MQMFVd6wXiDHErDy07/MYSraCPEec6EoKOlsWIy3PQzzZRRzH8NjVCX4zR1aEPN8AIpJByOcWhEbZIQ3 lbm [file] AgICAgICAgICAgICAgICAgICAgICAgICAgICAgICAg SNJtLMVzECVoNCTbQJJbTVOqOUJeGHWcGHSdJZZcHTTsYTVaVZLmYXVvRLXzFEMcDITbPKIkMCStAH2O ICAgICAgICAgICAgICAgICAgICAgICAgICAgICAgICAgICAgICAgICAgICAgICAgICAgICAgICAgICAg ICAgICAgICAgICAgICAgICAgICAgICAgICAgICAgIC EaPFVrVNRuMH0OUOVnGNCxXUPyFIUeRIDtGPXdWMXaXUJdMKDnLSOlTLNsXPNgNPNiVXEvGBZjAKQeOU UaULReJUHiSDQiINYqKBBqXPQgPNInBKKvUCIcTSUgALViRTYzSYOeKMEaEFDcMFLlJQ3XMNSoDNKwAI AgICAgICAgICAgICAgICAgICAgICAgICAgICAgICAg ICAgICAgICAgICAgICAgICAgICAgICAgICAgICAgICAgICAgICAgICAgICAgICAgICAgICAgICAgICAg FT5LPNWnKPViGDYgFZOoLQMwMLZvWNXpTYHoODAeYGGhLPDvXVWwDPRlEQPyLYZkBOUtXXFsRBKwKUBj ICAgICAgICAgICAgICAgICAgICAgICAgICAgICAgIC VxGJOzQZFfGIAwML9BSCWqIAUbVQLjYBFjAIQcBBCzHXUeTLGrPYGdDCKvYRDrNLUbVJTjIGCpAHFdRE WpFPXxDUUzTKUrLSRrUNCsISXsFYBrABSzUMLkCPJtEMQlRYPrXSZhLWLsOGSzVURmBURyZR9HWGTnAG AgICAgICAgICAgICAgICAgICAgICAgICAgICAgICAg ICAgICAgICAgICAgICAgICAgICAgICAgICAgICAgICAgICAgICAgICAgICAgICAgICAgICAgICAgICAg XJHvOC4TNBBgRZVaQKVsDOQtELIwVWPoJTWyUKGoUJVvMPVzRCTzHPZqPAZpSEBuDDHxYJQdENLoNVXf ICAgICAgICAgICAgICAgICAgICAgICAgICAgICAgIC WxZCLhENTyXVJaGZAsLC2NDCQmFMOfGTAdAEQcMMBzAOSpMDImDQMeDLAiGVCpRUEtPPTyWNZnAOTmFJ VeDLZsNSEzANXwGYUpBHUdURWdQPIoCMVvITHjXYJmFFSsBXLxSCMrAITiHEXsERHzNNBdESLlBL0DEV 59xAJsp1G0VGIiAY8yjeh/Hf9BIMfmofWpdKHjEK4U HtHyIC3wam0QSkUvWM7nda3VSFeXZuOwE8J4cPUcWVWyBCCSJeDoP45fSSusLs20LHbqWQLsHjPeSCm7 Zh5UFxRzA4daDKDjVjE8EPCnMhV3BOScXtS1SUAqInEpXGnnXX5Qx2XauTWkMGr+Jh7FYW3bm7GyZNuy LiRmMB0rnz1HBVkODgMsC2VufvJ7MZL4DZTmPt9MNZ DmTWGgjMScIcNeWMJALsRgR4DpuP32FVGLBp3+AGjnjvGdJfqZWgZ5UYSsk1NtMFa1MI9JJAHjFWc0hO LpAIYyR3Utv4QbHp61CEJuTgqfUVOejvJiFTqzLCWeDMbdHOPMGQUeaHY0CyzaGdPiZEHiSndqSMVIQJ cOAzSvG6Fei5AiUzE9JDKhJsHwXSdsWLSaXtZ2LC53 hMzgRG6YJMLkFRAqOZ29UHZ9RLXbOq2QHl5KMiXoGG1maa1UXqxnFFOfSccOVei4BYsvTS1MbGUvV5Xo lIWos0oNXyQkW4MTXLH0USZrPs1BIXGmLeEeSUAqHKyiPQ3cHCGbQFGWwRqbswM5WQ6VDY0hunRhFB0K KxSbWo2iDk6ELwCyB1UfC0SiFTDsXPLYOCrrAP4VUF inSV3dNZ3Qi9NGkJKeaM6fqq6BAHNwTJPoMnaxqq0OEpcjC6Q8eXtjBAQiPuXlUENTLJtzMZ3RGDMlMG S9VVUpGKPsLWCKAyOqZ43lIF4EW3Esl50bXmJ7NICwVnVrAKikSP47pOgsybYmaHZrvLqqVO9RTs7+DQ plbmRvYmoNCnhyZWYNCjAgMjkNCjAwMDAwMDAwMDAg RvV4IrAtGy7TKFZpSMLuGSHyBiEfUJMsILVoPSqbAPXqKYNzKCIcXCGqWWSlYJ5XYlQuGTVhWEVbRVHt XMZpAUWagu8CPDUzYYGmTNQ7UhJdQCJzMOIqESyeOIKsPWW0BgKhCLMxVLJkAS6WEjOvOTRwJVU8IwLb YRKfFLAnuy6JGPTeITPlZyB6JsAeIHPbRJUkHVfdLU LsUXB5Gjj4MXYrBIPpWR4YTyQdQGAzJDagONNtYQJyHRVdiz7UJGDmZRGsHCI6SUOgYHKzXFTnMBwjEW PeJJFjLHTtJSDxGPHdEU6HQoAgMFKgBPY3ELzbOUHuUQLqej9OXWPiFUWwCVyyWKUaPVVuBORyVChpMU KwRCOyRsL9CUIjHVZmLP7KOdKkYYXzQVW4ApXnAFHe FEAdea2DRLVbERXlGwS8XBUqBHObRAHrIDfpFXYvWCQrMGJ8HQQbRFJuHG1JRhKiGSMsVCXnNTtzPYEu DGIhhu6VSKLkIVA3PWGmAhXwSDUmOIOzKYcwYYZyHDIrBWYgJPChYKErFK9OUcXdNGLkTBQzFLdvWLVm PJEckj5XEFGqKGN3JyAqPuIaUFUaBSFkWTexJLBrPF LmMoNhQMBsZCIiBN5SLlKbQWVmFKFnSVanYAQuFDViya3QVMTmWYR1IefsCqPcBLVyZIRgVAkeYLFmXE R7LgA1TMOiYIKrXW0XLlTmGJTtHTJlGhjwZHLgHXLpgj5IZBDwQIK8MXH9VlDhUMVfZADpBCz5xcGgpG UqAZl6JA5OG0EhltYrYjpFBp5He980TJO9TABjDv4X X0ynKu2dYNTjEJQVHi0IBHx1NKH0EOK7JkF6VID8IXC0TND1KtY3CQH2QRS8HsYsLWn+IVb8EUOhPnIv XzUtFUe1HMKxULltWRYqUQx4XDU3AAIhAQ1uKOZLYw3+HQukqUOxlInaQKYQHfU6CuMcNSvaFPPAFx6T ID Date Data Source [id number] 11/22/2020 04:53:00 PM EDT [facility] Name Value Range Interpretation Code Description Data Lupe rce(s) Supporting Document(s) CULTURE URINE [facility] _CULTURE URINE_$$[id number]$$[id number]$$[id number]$$[id number]$$020505$$678038$$139965$$752917$$300225$$ 889862$$228024$$371736$$522037$$315345$$478179$$151780$$633522$$690854$$297870$$ 284513$$437997$$100425$$719503$$745707$$433113$$233055$$728439 -- Continued on next page --Patient: MAHAMED Carroll Order: [id number] Page 2Culture: CULTURE URINE Status: Final ====$$[id number]$$[id number] DATE/TIME: 11/22/2020 08:06Culture: CULTURE URINE Status: FinalUrine Culture,Comprehensive: M7Jlezz urogenital flora25,000-50,000 colony forming units per mLP1 Test performed by: Rain ATKINS #: [id number] [address] [place] [address] [id number] [facility] [id number] Director : Félix Escobar MD NPI #:Senior Principal Architect : 11/22/[email or web address] REF ID Date Data Source [id number] 11/20/2020 09:33:00 AM EDT [facility] Name Value Range Interpretation Code Description Data Lupe rce(s) Supporting Document(s) [facility] R [facility] COLOR yellow NORMAL: Yellow [facility] ospital CLARITY clear NORMAL: Clear [facility] Specific gravity of Urine by Test strip 1.020 1.001 - 1.030 [facility] pH 6.5 5 - 9 [facility] Glucose [Mass/volume] in Urine by Test strip NORM NORMAL: Neg[facility] Bilirubin.total [Presence] in Urine by Test strip NEG NORMAL: Negative [facility] Ketones [Presence] in Urine by Test strip NEG NORMAL: Negative [facility] Protein [Mass/volume] in Urine by Test strip NEG NORMAL: Neg[facility] Nitrite [Presence] in Urine by Test strip NEG NORMAL: Negative [facility] BLOOD NEG NORMAL: Negative [facility] LEUK EST NEG NORMAL: Negative [facility] Urobilinogen [Mass/volume] in Urine by Test strip NOR less geovanna n 1.0 mg/dL [facility] MICROSCOPIC Not Indicate [facility] ospital ID Date Data Source [id number] 10/02/2020 08:12:00 PM EDT [facility] 1 OrderSheet [facility] Emergency Department [address] [place] [address] Phone #: ext- [phone] 10/02/2020 20:06 Patient: ROX IRBY Sex: F : 1985 Age: 35yWEIGHT:71.6 kg (S) HEIGHT:63 inches (S) BMI:28.0ALLERGIES: NoneCHIEF COMPLAINT: rectal pain, hemorrhoidsDIAGNOSIS: HemorrhoidsLAB ORDERSOrder Description Priority Entered Acknowledged InitialedDIAGNOSTIC STUDY ORDERSOrder Description P riority Entered Acknowledged InitialedMEDICATION/IV/DRIP/FLUID ORDERSOrder Description Priority Entered Acknowledged InitialedNS IV 1000 mL 20:19 10/02/2020 Cancelled: Physician Order 20:20 RaheemBolus: : Bolus 1000 RaheemRoland (X1) ANJALI;GENERAL ORDERSOrder Description Priority Entered Acknowledged Initialed[Electronically signed by Raheem Kent (22:17 10/02/2020)][Electronically signed by Emily Sheldon R.N. (23:56 10/02/2020)][Electronically locked by Emily Sheldon R.N. (23:56 10/02/2020)] Name Value Range Interpretation Code Description Data Lupe rce(s) Supporting Document(s) ID Date Data Source [id number] 10/02/2020 08:12:00 PM EDT [facility] 1 Medication Reconciliation Report [facility] Emergency Department [address] [place] [address] Phone #: ext- [phone] 10/02/2020 20:06 Patient: ROX IRBY Sex: F : 1985 Age: 35yWeight: 71.6 kgHeight/Length: 63 in.BMI: 28.0ALLERGIES: NoneThe patient's Home Medications are listed below:CONTINUE TAKING THE FOLLOWING MEDICATIONS: Aspirin 81 Oral Famotidine Oral Folic Acid Oral Naltrexone HCl Oral PNVThe source(s) of the original Home Medication infor mation:Not obtained.The following Medications were given to the patient in the Emergency Department:None.The following Medications were prescribed to the patient:Metamucil (sugar) oral powder Take 1 scoop once a day for 30 days -- Dispense 1 can. Refills: 0.Substitution permitted.Pharmacy - [facility] [phone] ; [place] [address]. .Proctofoam HC 1 %-1 % Apply 1 foam four times a day for 21 days -- Dispense 1 can. Refills: 0.Substitution permitted.Pharmacy - [facility] [phone] ; [place] [address]. . -- ANJALI Mancilla Name Value Range Interpretation Code Description Data Lupe rce(s) Supporting Document(s) ID Date Data Source [id number] 10/02/2020 08:12:00 PM EDT [place] [address] Medication Administration Record [facility] Emergency Department [address] [place] [address] Phone #: ext [phone] 10/02/2020 20:06 Patient: ROX IRBY Sex: F : 1985 Age: 35yWeight: 71.6 kgHeight/Length: 63 inBMI: 28ALLERGIES: NoneDate/Time Medication Administered Medication Ordered Name Value Range Interpretation Code Description Data Lupe rce(s) Supporting Document(s) ID Date Data Source [id number] 10/02/2020 08:12:00 PM EDT [place] [address] General Instructions [facility] Emergency Department [address] [place] [address] Phone #: ext [phone] 10/02/2020 20:06 Patient: ROX IRBY Sex: Jazmín : 1985 Age: 35yProlapsed external hemorrhoids. No bleeding or thrombosed hemorrhoids.INSTRUCTIONS(You can try Tucks medicated pads as well.).Warnings: Further evaluation is necessary. It is very important to follow up with a healthcare provider.GENERAL WARNINGS: Return or contact your physician immediately if your condition worsens orchanges unexpectedly, if not improving as expected, or if other problems arise. Specifically return if pain orbleeding.Your Current Medications: Your current home medications have been reviewed.CONTINUE TAKING THE FOLLOWING MEDICATIONS:Aspirin 81 Oral.Famotidine Oral.Folic Acid Oral.Naltrexone HCl Oral.PNV*.Prescription Medications:Metamucil (sugar) oral powder Take 1 scoop once a day for 30 days -- Dispense 1 can. Refills: 0.Substitution permitted.Pharmacy - [facility] [phone] ; [place] [address]. FaxNumber: .Proctofoam HC 1 %-1 % Apply 1 foam four times a day for 21 days -- Dispense 1 can. Refills: 0.Substitution permitted.Pharmacy - [facility] [phone] ; [place] [address]. .Follow-up:Follow up with your doctor Monday if not better. Reason for referral: evaluation and treatment. Summary ofcare provided to family. Understanding of the discharge instructions verbalized by patient. ADDITIONAL INFORMATION 2 General Instructions [facility] Emergency Department [address] [place] [address] Phone #: ext- [phone] 10/02/2020 20:06 Patient: ROX IRBY Sex: F : 1985 Age: 35yHemorrhoidsHemorrhoids are swollen and inflamed veins inside the rectum and near the anus. The rectum is thelast several inches of the colon. The anus is th e passage between the rectum and the outside of thebody.CausesThe veins can become swollen due to increased pressure in them. This is most often caused by: Chronic constipation or diarrhea Straining when having a bowel movement Sitting too long on the toilet A low-fiber diet PregnancySymptoms Bleeding from the rectum. You may notice this after bowel movements. Lump near the anus Itching around the anus Pain around the anus Mucus leaks from the anus 3 General Instructions [facility] Emergency Department [address] [place] [address] Phone #: ext- [phone] 10/02/2020 20:06 Patient: ROX IRBY Sex: F : 1985 Age: 35yThere are different types of hemorrhoids. Depending on the type you have and the severity, you maybe able to treat yourself at home. In some cases, a procedure may be the best treatment option. Yourhealthcare provide r can tell you more about this, if needed.Home careGeneral care To get relief from pain or itching, try: o Medicines. Your healthcare provider may recommend stool softeners, suppositories, or laxatives to help manage constipation. Use these exactly as directed. o Sitz baths. A sitz bath involves sitting in a few inches of warm bath water. Be careful not to make the water so hot that you burn yourself--test it before sitting in it. Soak for about 10 to 15 minutes a few times a day. This may help relieve pain. o Topical products. Your healthcare provider may prescribe or recommend creams, ointments, or pads that can be applied to the hemorrhoid. Use these exactly as directed.Tips to help prevent hemorrhoids Eat more fiber. Fiber adds bulk to stool and absorbs water as it moves through your colon. This makes stool softer and easier to pass. o Increase the fiber in your diet with more fiber-rich foods. These include fresh fruit, vegetables, and whole grains. o Take a fiber supplement or bulking agent, if advised by your healthcare provider. These include products such as psyllium or methylcellulose. Drink more water. Your healthcare provider may direct you to drink plenty of water. This can help keep stool soft. Be more active. Frequent exercise aids digestion and helps prevent constipation. It may also help make bowel movements more regular. Don't strain during bowel movements. This can make hemorrhoids more likely. Also, don't sit on the toilet for long periods of time.Follow-up careFollow up with your healthcare provider as advised. If a culture or imaging tests were done, someonewill let you know the results when they are ready. This may take a few days or longer. If yourhealthcare provider recommends a procedure for your hemorrhoids, these options can be discussed.Options may include surgery and outpatient office treatments. 4 General Instructions [facility] Emergency Department [address] [place] [address] Phone #: ext- [phone] 10/02/2020 20:06 Patient: ROX IRBY Sex: F : 1985 Age: 35yWhen to seek medical adviceCall your healthcare provider right away if any of these occur: Increased bleeding from the rectum Increased pain around the rectum or anus Weakness or dizzinessCall 911Call 911 if any of these occur: Trouble breathing or swallowing Fainting or loss of consciousness Unusually fast heart rate Vomiting blood Large amounts of blood in stool or black, tarry stools [employer]. [address] [place] [address]. All rights reserved. This information is not intended as asubstitute for professional medical care. Always follow your healthcare professional's instructions. You have been given the following additional information: Hemorrhoids(Electronically signed by ANJALI Mancilla 10/02/2020 22:17) Name Value Range Interpretation Code Description Data Lupe rce(s) Supporting Document(s) ID Date Data Source [id number] 10/02/2020 08:12:00 PM EDT [facility] 1 Clinical Report - Nurses [facility] Emergency Department [address] [place] [address] Phone #: mfh- [phone] 10/02/2020 20:06 Patient: ROX IRBY Sex: F : 1985 Age: 35yTRIAGEArrived by private vehicle. Historian: patient. Accompanied by family.Triage time: 20:07 10/02/2020.Chief Complaint: (anal pain, states that she thinks it is a hemmorhoid).Onset. (mon). --20:10 10/02/20 Emily Booth R.N.Acuity: LEVEL 4.SEPSIS SCREEN: SIRS SCREEN: heart rate greater than 90. SEPSIS SCREEN NEGATIVE. Nosuspected or confirmed signs of infection present. --20:16 10/02/20 Emily Booth R.N.20:13 10/02/20. BP: 132/95. MAP: 107. HR: 108. RR: 18. O2 saturation: 98%. Temp: 98.8 F. Pain levelnow: 01/17. --20:16 10/02/20 Emily Booth R.N.Weight: 71.6 kg stated. Height/Length: 63 inches Per Patient. BMI: 28. --20:06 10/02/20 Emily Booth R.N.MedicationsPNV. --20:10 10/02/20 Emily Booth R.N. Folic Acid Oral. --20:10 10/02/20 Emily Booth R.N. Famotidine Oral. --20:10 10/02/20 Emily Booth R.N. Aspirin 81 Oral. --20:10 10/02/20 Emily Booth R.N. Naltrexone HCl Oral. --20:11 10/02/20 Emily Booth R.N.AllergiesNone. --20:10 10/02/20 Emily Booth R.N.ADDITIONAL SURGERIES:no known surgeries.HistoryPAST MEDICAL HX: Currently : 14 week, EDC 04/03/2021 Sees Stanley Frank BONDWilliam. G 1. P 0.--20:10 10/02/20 Emily Booth R.N.SOCIAL HX: Never smoker. No alcohol use or drug use. She was offered HIV testing but declined andhepatitis C testing but declined. She has not traveled outside the [place]Infectious disease exposure: No infectious disease exposure. The patient was not exposed to C-diff,MRSA, VRE or CRE. 2 Clinical Report - Nurses [facility] Emergency Department [address] [place] [address] Phone #: ext- [phone] 10/02/2020 20:06 Patient: ROX IRBY Sex: F : 1985 Age: 35y SELF HARM ASSESSMENT: Self harm assessment was performed. The patient answered "no" to the question(s) "Do you have thoughts of harming or killing yourself?" and "Have you recently had thoughts about harming or killing others?". ABUSE ASS ESSMENT: No report of abuse. FALL RISK ASSESSMENT: Fall risk assessment completed. Risk factors identified include severe pain. --20:16 10/02/20 Emily Booth R.N.PHYSICAL ASSESSMENTAmbulatory to room.GENERAL / NEURO / PSYCH: Appears in pain.HEENT: Mucous membranes are pink.RESPIRATORY: Respirations not labored.GI / : No pain with urination. ( pt reports constipation. last BM 1 hr ago).SKIN: Skin is warm and dry. --20:10/02/20 Emily Booth R.N.NURSING PROGRESS NOTESReassurance given to the patient. Call light placed in reach. Bed placed in lowest position. Brakes ofbed on. --20:10/02/20 Emily Booth R.N. Patient gowned. --20:10/02/20 Emily Booth R.N.DISPOSITION / DISCHARGE Departure time: 21:05 10/02/2020. Condition at departure: stable. No learning barriers present. Reviewed medication(s) information. Prescription(s) sent electronically to pharmacy. Patient verbalized understanding. Written instructions provided in Mal[place]ian. The patient was discharged by the physician life science research assistant. She was discharged home. She left ambulatory and via private vehicle. Counterintelligence Agent driving. --21:10/02/20 Emily Booth R.N. 21:02 10/02/20. BP: 138/92. MAP: 107. HR: 102. RR: 12. O2 saturation: 98%. Temp: 98.8 F. Pain level now: 09/17. --21:10/02/20 Emily Booth R.N.Locked/Released at 10/02/2020 23:56 by Emily Booth R.N. Name Value Range Interpretation Code Description Data Lupe rce(s) Supporting Document(s) ID Date Data Source [id number] 10/02/2020 08:12:00 PM EDT [facility] 1 Clinical Report - Physicians/Mid Levels [facility] Emergency Department [address] [place] [address] Phone #: ext- [phone] 10/02/2020 20:06 Patient: ROX IRBY Sex: F : 1985 Age: 35y Time Seen: 20:15 10/02/2020. Arrived- By private vehicle. Historian- patient.HISTORY OF PRESENT ILLNESS Chief Complaint: RECTAL PAIN and HEMORRHOIDS. This started yesterday and has been mild. (anal pain, states that she thinks it is a hemmorhoid). Is still present. It was gradual in onset and has been constant. The patient has had rectal pain and constipation but not had dark stools or rectal bleeding. No nausea, vomiting, diarrhea or abdominal pain. No recent travel. No known contact with a sick individual. Similar symptoms previously. None. Recent medical care: Not recently seen/assessed.REVIEW OF SYSTEMSNo dizziness, fainting episodes, weakness, abnormal bleeding or fever. No blurred vision, sore throat,epistaxis, cough or difficulty breathing. No chest pain, hematuria, skin rash, enlarged lymph nodes orchills. No joint pain. No complaint of rectal foreign body. The patient has had no rectal intercourse.Currently : 14 weeks.PAST HISTORYProblems:. Additional Surgeries: no known surgeries. Medications: Naltrexone HCl Oral. As pirin 81 Oral. Famotidine Oral. Folic Acid Oral. PNV. Allergies: None.SOCIAL HISTORYNever smoker. No alcohol use or drug use.PHYSICAL EXAM 2 Clinical Report - Physicians/Mid Levels [facility] Emergency Department [address] [place] [address] Phone #: ext- [phone] 10/02/2020 20:06 Patient: ROX IRBY Sex: F : 1985 Age: 35y Vital Signs: 10/02/2020 20:13 BP: 132/95. MAP: 107. HR: 108. RR: 18. O2 saturation: 98%. Temp: 98.8 F. Pain level now: 10/10. Have been reviewed as abnormal. Tachycardic. Oxygen saturation normal. Appearance: Alert. Oriented X3. No acute distress. Eyes: Pupils equal, round and reactive to light. Eyes normal inspection. ENT: Ears normal. Nose normal. Pharynx normal. Neck: Normal inspection. CVS: Tachycardia. Normal heart rhythm. Heart sounds normal. Respiratory: No respiratory distress. Breath sounds normal. Abdomen: Soft and nontender. Bowel sounds normal. No organomegaly. No mass. Back: Normal inspection. Rectal: External hemorrhoids (prolapsed). No inflamed external hemorrhoids, thrombosed external hemorrhoids, bleeding external hemorrhoids or ruptured external hemorrhoids. Skin: Skin warm and dry. Normal skin color. No rash. Normal skin turgor. Extremities: Extremities exhibit normal ROM. No lower extremity edema. Neuro: Oriented X 3.PROGRESS AND PROCEDURESCourse of Care: 20:49 Oct 02 2020. Evaluation after observation. (Discussed exam findings and pt isagreeable with dx and tx plan.). Patient and spouse counseled in person regarding the patient's stable condition, diagnosis and need for follow-up. Patient and spouse agrees with plan of care. 20:50 Oct 02 2020. Disposition: Discharged home in good and improved condition (20:50 Oct 02 2020).CLINICAL IMPRESSION Prolapsed external hemorrhoids. No bleeding or thrombosed hemorrhoids.INSTRUCTIONS (You can try Tucks medicated pads as well.). Warnings: Further evaluation is necessary. It is very important to follow up with a healthcare provider. GENERAL WARNINGS: Return or contact your physician immediately if your condition worsens or changes unexpectedly, if not improving as expected, or if other problems arise. Specifically return if pain or bleeding. Your Current Medications: Your current home medications have been reviewed. CONTINUE TAKING THE FOLLOWING MEDICATIONS: Aspirin 81 Oral. Famotidine Oral. 3 Clinical Report - Physicians/Mid Levels [facility] Emergency Department [address] [place] [address] Phone #: ext- [phone] 10/02/2020 20:06 Patient: ROX IRBY Sex: F : 1985 Age: 35y Folic Acid Oral. Naltrexone HCl Oral. PNV*. Prescription Medications: Metamucil (sugar) oral powder Take 1 scoop once a day for 30 days -- Dispense 1 can. Refills: 0. Substitution permitted. Pharmacy - [facility] [phone] ; [place] [address]. FaxNumber: . Proctofoam HC 1 %-1 % Apply 1 foam four times a day for 21 days -- Dispense 1 can. Refills: 0. Substitution permitted. Pharmacy - [facility] [phone] ; [place] [address]. . Follow-up: Follow up with your doctor Monday if not better. Reason for referral: evaluation and treatment. Summary of care provided to family. Understanding of the discharge instructions verbalized by patient.(Electronically signed by ANJALI Mancilla 10/02/2020 22:17) Name Value Range Interpretation Code Description Data Lupe rce(s) Supporting Document(s) ID Date Data Source [id number] 08/20/2020 11:43:00 AM EDT [facility] [address] [place] [address] PHONE: [phone] FAX: [phone] Name .................. : MAHAMED Carroll Acct Number.................. : [id number] ROOM. ................. : Number ................... : [id number] Stay type ............. : O/P Discharge Date......... ... : 08/19/20 Admit Date ....... .. : 08/19/20 Admit Phys .................... : SULTANA GAMBOA Date of ....... : 1985 Family Phys ................... : UNKNOWN Phone .................. : [phone] Age ................................ : 35 Film# .................. .:[id number] Sex ................................. : F Unsigned transcriptions are preliminary reports and do not represent a medical or legal [place] [id number] COMPLETE:08/19/20 10:33 B [id number] Reason for Exam: VIABILITY,DATING TRANSVAGINAL PELVIC SONOGRAM, 08/19/20: INDICATION: Viability and dating. FINDINGS: Uterus measures 5.3 x 6.1 x 8.5 cm in size. Right ovary measures 3.1 x 2.9 x 1.4 cm. Left ovary measures 2.2 x 2.0 x 1.6 cm. There are three intrauterine gestations identified. The first is on the maternal right and is labeled A. [place]- to-rump length measures 13.6 mm, which corresponds to 7 weeks and 5 days +/- 1 week. heart rate is 160 beats/minute. Fetus B is on the maternal left with lhftc-fr-vuxq length measuring 11 mm, which corresponds to 7 weeks and 2 days +/- 1 week. heart rate 142 beats/minute. Fetus C is superior to fetus A and fetus B with a cxmem-ps-jvrn length measuring 4 mm and does not demonstrate cardiac activity, raising suspicion for demise. Gestational age is 6 weeks 1 day. IMPRESSION: Three intrauterine gestations are identified. Fetus A and fetus B show gestational ages of 7 weeks 5 days and 7 weeks 2 days, respectively. heart rate for fetus A is 160 beats/minute, for fetus B is 142 beats/minute. Gestational age for fetus C is 6 weeks 1 day, which is lagging behind the other two and does not show cardiac activity, raising suspicion for demise of fetus C. Examination dictated by ANJALI Giordano. Examination was reviewed with Gio Griffith MD, radiologist at the time of this dictation. Electronically Reviewed and Signed By Gio Griffith MD , 08/20/20 11:43, AML Page [address] 2 [place] [address] PHONE: [phone] FAX: [phone] Name .................. : MAHAMED Carroll Acct Number.................. : [id number] ROOM. ........ ......... : MR Number ................... : [id number] Stay type ............. : O/P Discharge Date......... ... : 08/19/20 Admit Date ......... : 08/19/20 Admit Phys .................... : SULTANA GAMBOA Date of ....... : 1985 Family Phys ................... : UNKNOWN Phone .................. : [phone] Age ................................ : 35 Film# .................. .:[id number] Sex ................................. : F Unsigned transcriptions are preliminary reports and do not represent a medical or legal [place] [id number] COMPLETE:08/19/20 10:33 KNB [id number] Reason for Exam: VIABILITY,DATING Transcribe Initials: SSR, Transcribe Date: 08/19/20 12:49, Dictation Date: Copy for: SULTANA MONGE via fax Copy for: [address] [place] [address] REC Page 2 of 2 Name Value Range Interpretation Code Description Data Lupe rce(s) Supporting Document(s) ID Date Data Source [id number] 03/27/2020 07:15:00 AM EST [facility] Name Value Range Interpretation Code Description Data Lupe rce(s) Supporting Document(s) SARS coronavirus 2 RNA [facility] This lab was ordered by HELENA villaseñor and reported by [facility]. Procedure Social History No Information Vital Signs ID Date Data Source [id number] 11/23/2020 02:18:33 PM EDT [facility] Name Value Range Interpretation Code Description Data Source(s) WEIGHT RECORDED 167.00 pounds [address] [facility] Height 53 Inches 053 Inches [facility]
--- OUTSIDE RECORDS SUMMARY | 2021-02-21 18:14 | CCD | Continuity of Care Document ---
Author Author Pm Head Cook, [facility] Organization Unknown Address Unknown Phone Unavailable Care Team Providers Care Supervisor Customer Records Division Name Role Phone Lucho Stiles MD Unavailable Unavailable Xin Rojas Unavailable Unavailable Problems In vitro fertilization (Z31.83) (V26.81) Maria Del Rosario Rojas Twin , antepartum (O30.009) Xin Rojas (651.03) Allergies and Adverse Reactions No Allergy Information Available Medications No Medication Information Available Social History No Social History Information Available Tobacco smoking consumption unknown Female Plan of Treatment DOPPLER COLOR FLOW MAPPING (59505) Start: 05-Jan-2021 Int ent DOPPLER ECHO EXAM (70073) Start: 05-Jan-2021 Intent ECHO EXAM OF HEART, 2D (16957) Start: 05-Jan-2021 I ntent ECHO EXAM OF HEART, 2D (62117) Start: 05-Jan-2021 I ntent ECHO EXAM OF HEART, DOPPLER Start: 05-Jan-2021 Inte nt COMPLETE (46372) ECHO EXAM OF HEART, DOPPLER Start: 05-Jan-2021 Inte nt COMPLETE (05742) Results No Known Results No Result Information Available Vital Signs No Vital Observation Information Available Encounters Procedure Only 05-Jan-2021 14:00 Encounter Diagnosis:In vitro To 05-Jan-2021 15:20 fertilization, Twin , [facility] antepartum [facility] [employer] Number: NONE [id number] [facility] [id number] [place] tel: Emily Phillip [address] [facility] 1360 3 tel:
[2021-02-21] MEDS ORDERED: TUMS500C (18:31)
[2021-02-21 18:39] LABS: BASO % 0.3 % (0.0-1.0); EOS # 0.2 10^3/uL (0.0-0.5); EOS % 3.5 % (0.0-3.0); HEMATOCRIT 37.8 % (36.0-47.0); HEMOGLOBIN 12.7 g/dl (12.0-15.5); MEAN CORPUSCULAR HEMOGLOBIN 31.6 pg (27.0-33.0); MEAN CORPUSCULAR HGB CONC 33.6 g/dl (32.0-36.5); MONO # 0.7 10^3/uL (0.0-0.8); MONO % 12.3 % (2.0-8.0); NEUTROPHILS % 50.6 % (36.0-66.0); PLATELET COUNT, AUTOMATED 212 10^3/uL (150-450); RED BLOOD COUNT 4.02 10^6/uL (4.00-5.40); WHITE BLOOD COUNT 5.9 10^3/uL (4.0-10.0)
[2021-02-21 18:50] LABS: INR 0.96; PROTHROMBIN TIME 13.2 SECONDS (12.7-14.5)
[2021-02-21 18:51] LABS: PARTIAL THROMBOPLASTIN TIME 29.9 SECONDS (25.9-37.0)
[2021-02-21 19:04] LABS: BLOOD UREA NITROGEN 6 MG/DL (7-18); CALCIUM LEVEL 9.2 MG/DL (8.5-10.1); CARBON DIOXIDE LEVEL 21 MEQ/L (21-32); CHLORIDE LEVEL 112 MEQ/L (98-107); CPK CREATINE PHOSPHOKINASE 174 U/L (26-192); CREATININE FOR GFR 0.63 MG/DL (0.55-1.30); GLOMERULAR FILTRATION RATE > 60.0 (>60); GLUCOSE, FASTING 86 MG/DL (70-100); MB/CK RELATIVE INDEX 1.15 (< OR =4); POTASSIUM SERUM 4.3 MEQ/L (3.5-5.1); SODIUM LEVEL 139 MEQ/L (136-145); TROPONIN I < 0.02 NG/ML (< 0.10)
[2021-02-21] MEDS ORDERED: valACYclovir HCL 500 MG TAB PO ONE (19:25)
[2021-02-21] MEDS ORDERED: predniSONE 20 MG TAB PO ONE (19:25)
--- OUTSIDE RECORDS SUMMARY | 2021-02-21 19:31 | CCD ---
Author Author [facility] Organization [facility] Address Unknown Phone Unavailable Care Team Providers Care Squeegee Finisher Name Role Phone Nwogu, U Vikram DO [...] Unavailable WERO WEINBERG MD Unavailable Unavailable WERO WEINBEGR MD Unavailable Unavailable WERO WEINBERG MD Unavailable [...] Unavailable Unavailable DUONGJazmín MD Unavailable Unavailable DUONGJazmín Carroll MD Unavailable [...] Unavailable NOSOVITCH Rivas PADILLA MD Unavailable Unavailable MARTIN, [facility] Unavailable Unavailable RUBEN STILES Unavailable [...] is protected by Article 27-F of the [facility] Public Health law. If you continue you may have access to information: Regarding HIV / AIDS; Provided by facilities licensed or operated by the [facility] Office of Mental Health; or Provided by the [facility] Office for People With Developmental Disabilities. If such information is present, then the following [facility] mandated warning applies: This information has [...] law may result in a fine or alf sentence or both. A general authorization for the release of medical or other information is NOT sufficient authorization for further disc losure. Allergies and Adverse Reactions Type Description Substance Reaction Status Data Source(s ) Allergy Allergy No Known Drug Allergies Active A [facility]scripts ([facility]) No Known Allergies No Known Allergies [facility] Encounters Encounter Providers Location Date Indications Data Source(s ) Outpatient 02/15/2021 03:45:44 PM EST - 021 04:11:31 PM EST [facility]Tap ([facility]) <td><content ID="_[id number]">Office Visit</content>
<content><content styleCode="xLabel xSecondary">Encounter Reason:</content><content ID="_[id number]" styleCode="xSecondary">Office Visit - Note for "Office Visit": I apologize for my delay in finalizing this report. I am seeing Michaelelijah in consultation on January 05, 2021 for echocardiography of a di-di twin gestation facilitated with IVF.She is a 35 year old 2 para 0 who is now 27 4/7 weeks with an expected date of confinement of April 02, 2021. She is accompanied by her Jasson.Her is followed by Dr. Stiles at [place]. Her has been remarkable for the twin gestation and she has been well otherwise. Her medications are famotidine, a baby aspirin and vitamins. Delivery is planned at [facility].</content></content>
<co ntent><content styleCode="xSecondary xLabel">Encounter Diagnosis:</content><content ID="_[id number]" styleCode="xSecondary">Twin gestation, dichorionic diamniotic</content> </content></td><td><content styleCode="xSecondary">01-Feb-2021 5:53 </content><content styleCode="xLabel xSecondary"> To </content><content styleCode="xSecondary">01-Feb-2021 14:38</content>
<content styleCode="xSecondary">[facility]</content>
</td><td></td>Outpatient Pediatric Cardiol y [facility] 02/01/2021 05:53:43 AM EDT - 02/01/2021 02:38:50 PM EDT Office Visit - Note for "Office Visit": I apologize for my delay in finalizing this report. I am seeing Michaelelijah in consultation on January 05, 2021 for echocardiography of a di-di twin gestation facilitated with IVF.She is a 35 year old 2 para 0 who is now 27 4/7 weeks with an expected date of confinement of April 02, 2021. She is accompanied by her Jasson.Her is followed by Dr. Stiles at [place]. Her has been remarkable for the twin gestation and she has been well otherwise. Her medications are famotidine, a baby aspirin and vitamins. Delivery is planned at [facility].Twin gestation, dichorionic diamniotic [facility] ([facility] [...] Jasson.Her is followed by Dr. Stiles at [place]. Her has been remarkable for the twin gestation and she has been well otherwise. Her medications are famotidine, a baby aspirin and vitamins. Delivery is planned at [facility]. Twin gestation, dichorionic diamniotic Procedure Only<td><content [id number]">Procedure Only</content>
<content><content styleCode="xSecondary xLabel">Encounter Diagnosis:</content><content ID="_[id number]" styleCode="xSecondary">In vitro fertilization</content><content styleCode="xSecondary">, </content><content [id number]" styleCode="xSecondary">Twin , antepartum</content></content></td><td><content styleCode="xSecondary">05-Jan-2021 14:00 </content><content styleCode="xLabel xSecondary"> To </content><content styleCode="xSecondary">05-Jan-2021 15:20</content>
<content styleCode="xSecondary">[facility]</content>
</td><td></td> [facility] 01/05/2021 02:00:00 PM EDT - 01/05/2021 03:20:31 PM EDT Twin , antepartumIn vitro fertilization [facility] ([facility]) Twin , antepartum In vitro fertilization Outpatient Attender: ALVARO LOCO JRReferrer: CASPER STILES [id number] 12/17/2020 12:00:00 AM EDT - 12/17/2020 04:29:58 PM [facility] Outpatient Attender: ANGELINA MAIERReferrer: CASPER STILES 12/17/2020 12:00:00 AM [facility] Outpatient Attender: Vikram MCCRARY ttender: RONNI WATTERS MDConsultant: CLINIC MARTIN 11/20/2020 07:57:00 AM EDT - 11/20/2020 11:30:00 AM EDT [facility] Patient discharged. Emergency Attender: JORGE LEE MDConsultant: CLIN IC TONY 10/02/2020 08:12:00 PM EDT - 10/02/2020 09:05:00 PM EDT [facility] Patient discharged. Outpatient Attender: MARIPOSA WEINBERG MDConsultant: [facility] NADIR 08/19/2020 09:16:00 AM EDT - 08/19/2020 10:16:00 AM EDT [facility] Immunizations Vaccine Date Status Description Data Source(s) COVID-19 VACCINE Moderna 01/18/2021 12:00:00 AM EDT completed [facility] Vaccine Series Complete: YESThis Data wa s Submitted to [facility] Via [facility]. COVID-19 VACCINE Moderna 12/19/2020 12:00:00 AM EDT completed [facility]IS Vaccine Series Complete: NOThis Data was Submitted to [facility] Via [employer]. Medications No Information Insurance Providers Payer name Policy type / Coverage type Policy ID Covered democrat ID Covered democrat's relationship to la Policy La Plan Information U [id number] Self [id number] FFS Self Pay [id number] Self [id number] [facility] ACTIVE DUTY [id number] SP [id number] [facility] HUMANA - O/P [id number] 18 [id number] [facility] HUMANA [id number] SP [id number] [employer] [place] O [id number] S [id number] Problems, Conditions, and Diagnoses Code Display Name Description Problem Type Effective Dates Data Source(s) Z3A21 21 weeks gestation of 21 weeks gestation of Diagnosis 11/20/2020 07:57:00 AM EDT [facility] R102 Pelvic and perineal pain Pelvic and perineal pain Diag nosis [facility] Other specified related condit ions, second trimester Other specified related conditions, second trimester Diagnosis 11/20/2020 07:57:00 AM EDT [facility] E37525 Twin , unable to de termine number of placenta and number of amniotic sacs, second trimester Twin , unable to determine numb er of placenta and number of amniotic sacs, second trimester Diagnosis 11/20/2020 07:57:00 AM EDT [facility] 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 Diagnosis 10/02/2020 08:12:00 PM EDT [facility] Z3A14 14 weeks gestation of 14 weeks gestation of Diagnosis 10/02/2020 08:12:00 PM EDT [facility] O2242 Hemorrhoids in , second trimest er Hemorrhoids in , second trimester Diagnosis 10/02/2020 08:12:00 PM EDT [facility] O0900 Supervision of wit h history of infertility, unspecified trimester Supervision of with history of infertility, unspecified trimester Diagnosis 08/19/2020 09:16:00 AM EDT [facility] Surgeries/Procedures Procedure Description Date Indications Data [...] [facility]) Results ID Date Data Source [id number] 02/15/2021 04:00:00 PM EST [facility] Name Value Range Interpretation Code Description Data Lupe rce(s) Supporting Document(s) SARS-CoV-2 RNA Resp Ql ALISA+probe NOT DETECTED [facility] This lab was ordered by NASEEM pike and reported by NASEEM Whyte. ID Date Data Source [id number] 01/07/2021 07:23:00 PM EDT [facility] Name Value Range Interpretation Code Description Data Lupe rce(s) Supporting Document(s) Progress Note [facility] DZUPJm1mRsYOFxLr48/PNYhvBDQjt4SqAIaiQRf1NEpiEULyR1HuFRN8bT3tTLE5NDwPVbMcIeYaLDJb lbm [file] [id number]= ID Date Data Source [id number] 12/22/2020 10:00:23 PM EDT [facility] Name Value Range Interpretation Code Description Data Lupe rce(s) Supporting Document(s) Progress Note [facility] ZRDPSf3hWvAAQrMr47/KTVoxQMEgm1UtESzgRPg5IGkjNNBlR7GxJXT2xE2wGVS5URnGPmDiTnDsPCQ0 lbm [file] AgICAgICAgICAgICAgICAgICAgICAgICAgICAgICAg HTOoTDSsPISqJDCzWSWoWYMzUVXiJWMdKHQxZGMjHDMyECHmMPPeTEAbUBIgYLNhHTGjYQOcYHZyPM1V ICAgICAgICAgICAgICAgICAgICAgICAgICAgICAgICAgICAgICAgICAgICAgICAgICAgICAgICAgICAg ICAgICAgICAgICAgICAgICAgICAgICAgICAgICAgIC TzRCXbACXkSX7AWAQaLUCoPJQePSUzZRPfXMPnYITkOUCiICSaQHPsSVCsCRMcKZBgOMWaZMAdDQFsQL DyWEAeTTKvHZPfLTVzGMNxBOJrLKIuOAUmSRIkQSNcBPNtMQVyIUInYTBfSABjOFFtVS2VMGLsTVOuSP AgICAgICAgICAgICAgICAgICAgICAgICAgICAgICAg ICAgICAgICAgICAgICAgICAgICAgICAgICAgICAgICAgICAgICAgICAgICAgICAgICAgICAgICAgICAg IU9NXMZlPWNtRKOcIDLlEFSxLVYsOHAiSIDvORAqHVPvDZCdROOxXBQoJAYqQKFqNCGuIIUuZSOwEZKf ICAgICAgICAgICAgICAgICAgICAgICAgICAgICAgIC DcHPEdOUVlSEFwPM0KOLAoFEFiXRHbLDAqABLjWKKcQDNuYONwSUOkUIQmJPJhVKDuAJLqBSXeZCWqLW MxBCBhAWPkZXDsQKBiPPTmHBVnNNTdCCQyBRFvQUFnAKVxUELaJRJlBYXgYJCnMJNfLQQoUC7XVQLsEV AgICAgICAgICAgICAgICAgICAgICAgICAgICAgICAg ICAgICAgICAgICAgICAgICAgICAgICAgICAgICAgICAgICAgICAgICAgICAgICAgICAgICAgICAgICAg VCKiRX4ARVSkXFKbIIXjTWWfPKVzGVQzEMGqJHHvUVOjTBOeQUBlCRNlETJlGDOlCBAwUMIhLRNgZONe ICAgICAgICAgICAgICAgICAgICAgICAgICAgICAgIC KrKWFmMYSeLANsONEzEH8OMHIbKIUnGVIjFYReKMDuOHCyFBYoDKKkWZVqDFGfKNUvVEGwYOSkUQZkRK ZpFXWcPYYnFSDfNWPwLLGuCKKuZDJjTAUwXYKqQODlXDPlQGDmUKOxNLVbGMCoEFXkEGHuUYZmLC3YIM 00iUNjf1I2KIXuLG4vtnx/Tv1GIDkjcuEctWWuNG6Y QbDrSE3tfr9ZSgIwKX7hay4FMVdPEgUvZ6C8zQTdRPMkAYLRRcMlD04lKPzkWc74RGgqPCOuSqGhGGx1 Ec1MObPvF2ebUXTnIrH5TMGnSjZ0MZRvPuO7XJFwAjXrPVddOL8Ki8RtaOWcSOt+It3NIA4qg0AkGEbq WxBuCQ1ywa6PKKlEWwOeK9VrfkB4AOL1DOHsHh5GFI MxWMFdhLGuHzOcDHTTRpEhA0JomK55CAOOPv2+LDwwudIrIufOBqD7AFQcp9OlQLr6DQ9QOVEqUDj0mI UhOSYqD5Wbl3DpSm31RQBdIqroXAYcoyMvPVysJZRhOBjvMNHXPVLmkCY7RbvkFsUwUGBkVttbAKIPVJ iGWuUmU6Ryu1OyLhS9WGCjNjCfYWfeLCIdFzB8TL55 fTinOJ1JWRAgGTViQY51XPE2LMInGp3BDh7EHtNxZZ7yas4DGtxaNRMrAluVSal4VWgeYT2DjKLjJ7Bz yJGtg4iLNnEwR5ZPMAK9QMUwKw0TZTXgYdTbSKQzCNhzVD1tKBRxLRPVsYobqeY0HQ2YBJ4axtYzSO9J YyClGp6gXs5CUbDvB3DtB6DwFAIlGVYBUHgpGN2HOU buKP6fRH1Xo8GGzSSkwP9ujy4SZBRlJNLyXyxnae9UQwzkZ7M9fSchBYTdKgHzLSWWCIjeWA6DVPRuUH W5XGVjKCFsPSDPEvSaV79pHT1UN8Ckn49qLaG1FGGkVqRlVAosOT07mBrtcmYwcDPjtLsiRV6ADy1+DQ plbmRvYmoNCnhyZWYNCjAgMjkNCjAwMDAwMDAwMDAg DnC2HvIpCj3NCVRxPLDiOSIvMtNuUWRaJNWaWRooIEXbBMZxMWFwGOOuQECsKA3HLgJrENDbVZFzAUHz EMAkWOZcma3FNBHwZTAfYZT7WuVaIBDwXKVmFTapTSGcFLQ2SlUvBCJiMHHjOJ8UMmKfIZTtKGO0GhXo HNThVKAwqj6KQRQhMPKeIcK3DzEaOQRnJFYjWLboWW NfINU2Gas8EKHiFEDmLV0MQtEeUXUkTYnmVXIsMTVkIBQogc2XJMZkOANyZKZ5NPDzXXPvJKGnDSvzKE MhHPIxBPAeECOzJEOmFV3COqSvSVOiIKH2DOwlXCBaUWCcxh2TBRHhLXYyFSmzMKMaPECjEAJjDQrpNC LyKOYdZdX7BBBlYLMaCK1WIxEkMHMzIEB1IbUlIFQr GOFrrz2AWZVsOXEyIsU8NYRuOAAnVTCrZPomABHbDFJcYES2VLJxPPYzTA3UVvHbOPHtAXFcBEtcAJPt LAUequ7DUCUoGTP5UATmDoOgIWGpVAIfKNjrKIEtKNEtCHNmHDIcSIBgQT0ULdYuMSZwGXTpWJzpALHx UHZmuu2VIBHdDPY3NjHcOyXdGVBfXJYlFFpaWERnQF WnKbHlSBByWLCaRE9SFxKjTUSrEDAnUIkuCISnJBLjme3QNIDrXVA5MvtpVzKeLOXbCZMzFTjySBOeOB D4MbG2AYVgWPHfSY5UMbIgXQUsJPOnOfmpRMFyVKXtcc5CIJFkBCN5SJC8FbWmIDFgKVXfTAd1wsDzhK KxSMf6MA7OI8OfnlEdBmuQRu4Xx776SRZ2OCGfEl4M U5bfRf9vZEUyKRMIDw8TTLt0XMH4PEC7NgX3TIN0GDH3TKV3CpW2UHL8PAV0DiXvMSy+KJp2RESfNtBn HxVwSBq9WXXnRUiiCEKtDRj2EVA6YHLzOD9lUOUTKz6+DGszyZPmuSqqIPCZWmY4FjZkEDkhAVRBFm0M ID Date Data Source [id number] 11/22/2020 04:53:00 PM EDT [facility] Name Value Range Interpretation Code Description Data Lupe rce(s) Supporting Document(s) CULTURE URINE [facility] _CULTURE URINE_$$[id number]$$[id number]$$897180$$379877$$526281$$960171$$698359$$866384$$691661$$ 922968$$602335$$529715$$562752$$229187$$519743$$524249$$900749$$356998$$085672$$ 520056$$665856$$941544$$054295$$739136$$500755$$946107$$236490 -- Continued on next page --Patient: MAHAMED Carroll Order: [id number] Page 2Culture: CULTURE URINE Status: Final ====$$[id number]$$[id number] DATE/TIME: 11/22/2020 08:06Culture: CULTURE URINE Status: FinalUrine Culture,Comprehensive: F8Nnmic urogenital flora25,000-50,000 colony forming units per mLP1 Test performed by: Rain ATKINS #: [id number] [address] [place] [address] [id number] [facility] [id number] Director : Félix Ecsobar MD NPI #:Service Desk Manager : 11/22/20.1653.XMT.SENT REF ID Date Data Source [id number] 11/20/2020 09:33:00 AM EDT [facility] Name Value Range Interpretation Code Description Data Lupe rce(s) Supporting Document(s) [facility] S[facility] R [facility] COLOR yellow NORMAL: Yellow [facility] CLARITY clear NORMAL: Clear [facility] Specific gravity of Urine by Test strip 1.020 1.001 - 1.030 [facility] pH 6.5 5 - 9 [facility] Glucose [Mass/volume] in Urine by Test strip NORM NORMAL: Negat [facility] Bilirubin.total [Presence] in Urine by Test strip NEG NORMAL: Negative [facility] Ketones [Presence] in Urine by Test strip NEG NORMAL: Negative [facility] Protein [Mass/volume] in Urine by Test strip NEG NORMAL: Negat [facility] Nitrite [Presence] in Urine by Test strip NEG NORMAL: Negative [facility] BLOOD NEG NORMAL: Negative [facility] LEUK EST NEG NORMAL: Negative [facility] Urobilinogen [Mass/volume] in Urine by Test strip NOR less geovanna n 1.0 mg/dL [facility] MICROSCOPIC Not Indicate [facility] ID Date Data Source [id number] 10/02/2020 08:12:00 PM EDT [facility] 1 OrderSheet [facility] Emergency Department [address] [place] [address] Phone #: ext- [phone] 10/02/2020 20:06 Patient: ROX IRBY Sex: F : 1985 Age: 35yWEIGHT:71.6 kg (S) HEIGHT:63 inches (S) BMI:28.0ALLERGIES: NoneCHIEF COMPLAINT: rectal pain, hemorrhoidsDIAGNOSIS: HemorrhoidsLAB ORDERSOrder Description Priority Entered Acknowledged InitialedDIAGNOSTIC STUDY ORDERSOrder Description P riority Entered Acknowledged InitialedMEDICATION/IV/DRIP/FLUID ORDERSOrder Description Priority Entered Acknowledged InitialedNS IV 1000 mL 20:19 10/02/2020 Cancelled: Physician Order 20:20 Sandrinelus: : Bolus 1000 RaheemRoland (X1) ANJALI;GENERAL ORDERSOrder Description Priority Entered Acknowledged Initialed[Electronically signed by Raheem Kent (22:17 10/02/2020)][Electronically signed by Emily Sheldon R.N. (23:56 10/02/2020)][Electronically locked by Emily Sheldon R.N. (23:56 10/02/2020)] Name Value Range Interpretation Code Description Data Lupe rce(s) Supporting Document(s) ID Date Data Source [id number] 10/02/2020 08:12:00 PM EDT [facility] 1 Medication Reconciliation Report [facility] Emergency Department [address] [place] [address] Phone #: ext- [phone] 10/02/2020 20:06 Patient: [...] Dispense 1 can. Refills: 0.Substitution permitted.Pharmacy - [facility] [phone] ; [place] [address]. .Proctofoam HC 1 %-1 % Apply 1 foam four times a day for 21 days -- Dispense 1 can. Refills: 0.Substitution permitted.Pharmacy - [facility] [phone] ; [place] [address]. . -- ANJALI Mancilla Name Value Range Interpretation Code Description Data Lupe rce(s) Supporting Document(s) ID Date Data Source [id number] 10/02/2020 08:12:00 PM EDT [place] [address] Medication Administration Record [facility] Emergency Department [address] [place] [address] Phone #: ext [phone] 10/02/2020 20:06 Patient: ROX IRBY Sex: F : 1985 Age: 35yWeight: 71.6 kgHeight/Length: 63 inBMI: 28ALLERGIES: NoneDate/Time Medication Administered Medication Ordered Name Value Range Interpretation Code Description Data Lupe rce(s) Supporting Document(s) ID Date Data Source [id number] 10/02/2020 08:12:00 PM EDT [place] [address] General Instructions [facility] Emergency Department [address] [place] [address] Phone #: ext [phone] 10/02/2020 20:06 Patient: ROX IRBY Sex: Jazmín [...] Dispense 1 can. Refills: 0.Substitution permitted.Pharmacy - [facility] [phone] ; [place] [address]. FaxNumber: .Proctofoam HC 1 %-1 % Apply 1 foam four times a day for 21 days -- Dispense 1 can. Refills: 0.Substitution permitted.Pharmacy - [facility] [phone] ; [place] [address]. .Follow-up:Follow up with your doctor Monday if not better. Reason for referral: evaluation and treatment. Summary ofcare provided to family. Understanding of the discharge instructions verbalized by patient. ADDITIONAL INFORMATION 2 General Instructions [facility] Emergency Department [address] [place] [address] Phone #: ext- [phone] 10/02/2020 20:06 Patient: ROX IRBY Sex: F [...] leaks from the anus 3 General Instructions [facility] Emergency Department [address] [place] [address] Phone #: ext- [phone] 10/02/2020 20:06 Patient: [...] and outpatient office treatments. 4 General Instructions [facility] Emergency Department [address] [place] [address] Phone #: ext- [phone] 10/02/2020 20:06 Patient: [...] blood in stool or black, tarry stools [email or web address]. [address] [place] [address]. All rights reserved. This information is not intended as asubstitute for professional medical care. Always follow your healthcare professional's instructions. You have been given the following additional information: Hemorrhoids(Electronically signed by ANJALI Mancilla 10/02/2020 22:17) Name Value Range Interpretation Code Description Data Lupe rce(s) Supporting Document(s) ID Date Data Source [id number] 10/02/2020 08:12:00 PM EDT [facility] 1 Clinical Report - Nurses [facility] Emergency Department [address] [place] [address] Phone #: tfu- [phone] 10/02/2020 20:06 Patient: ROX IRBY Sex: F [...] : 14 week, EDC 04/03/2021 Sees Stanley Elderdaiana MATTEO. G 1. P 0.--20:10 10/02/20 Emily Booth R.N.SOCIAL HX: Never smoker. No alcohol use or drug use. She was offered HIV testing but declined andhepatitis C testing but declined. She has not traveled outside the [place]Infectious disease exposure: No infectious disease exposure. The patient was not exposed to C-diff,MRSA, VRE or CRE. 2 Clinical Report - Nurses [facility] Emergency Department [address] [place] [address] Phone #: ext- [phone] 10/02/2020 20:06 Patient: [...] Patient verbalized understanding. Written instructions provided in Guinean. The patient was discharged by the physician orthotics assistant. She was discharged home. She left ambulatory and via private vehicle. [employer] driving. --21:10/02/20 Emily Booth R.N. 21:02 10/02/20. BP: 138/92. MAP: 107. HR: 102. RR: 12. O2 saturation: 98%. Temp: 98.8 F. Pain level now: 09/17. --21:10/02/20 Emily Booth R.N.Locked/Released at 10/02/2020 23:56 by Emily Booth R.N. Name Value Range Interpretation Code Description Data Lupe rce(s) Supporting Document(s) ID Date Data Source [id number] 10/02/2020 08:12:00 PM EDT [facility] 1 Clinical Report - Physicians/Mid Levels [facility] Emergency Department [address] [place] [address] Phone #: ext- [phone] 10/02/2020 20:06 Patient: [...] EXAM 2 Clinical Report - Physicians/Mid Levels [facility] Emergency Department [address] [place] [address] Phone #: [phone] xlb- [phone] 10/02/2020 20:06 Patient: ROX IRBY Sex: F [...] Oral. 3 Clinical Report - Physicians/Mid Levels [facility] Emergency Department [address] [place] [address] Phone #: ext- [phone] 10/02/2020 20:06 Patient: ROX IRBY Sex: F : 1985 Age: 35y Folic Acid Oral. Naltrexone HCl Oral. PNV*. Prescription Medications: Metamucil (sugar) oral powder Take 1 scoop once a day for 30 days -- Dispense 1 can. Refills: 0. Substitution permitted. Pharmacy - [facility] [phone] ; [place] [address]. FaxNumber: . Proctofoam HC 1 %-1 % Apply 1 foam four times a day for 21 days -- Dispense 1 can. Refills: 0. Substitution permitted. Pharmacy - [facility] [phone] ; [place] [address]. . Follow-up: Follow up with your doctor Monday if not better. Reason for referral: evaluation and treatment. Summary of care provided to family. Understanding of the discharge instructions verbalized by patient.(Electronically signed by ANJALI Mancilla 10/02/2020 22:17) Name Value Range Interpretation Code Description Data Lupe rce(s) Supporting Document(s) ID Date Data Source [id number] 08/20/2020 11:43:00 AM EDT [place] [id number] [place] [address] PHONE: [phone] FAX: [phone] Name .................. : MAHAMED Carroll Acct Number.................. : [id number] ROOM. ................. : Number ................... : [id number] Stay type ............. : O/P Discharge Date......... ... : 08/19/20 Admit Date ....... .. : 08/19/20 Admit Phys .................... : SULTANA GAMBOA Date of ....... : 1985 Family Phys ................... : UNKNOWN Phone .................. : [phone] Age ................................ : 35 Film# .................. .:[id number] Sex ................................. : F Unsigned transcriptions are preliminary reports and do not represent a medical or legal document [place] [id number] COMPLETE:08/19/20 10:33 B [id number] Reason for Exam: VIABILITY,DATING TRANSVAGINAL PELVIC SONOGRAM, 08/19/20: INDICATION: Viability and dating. FINDINGS: Uterus measures 5.3 x 6.1 x 8.5 cm in size. Right ovary measures 3.1 x 2.9 x 1.4 cm. Left ovary measures 2.2 x 2.0 x 1.6 cm. There are three intrauterine gestations identified. The first is on the maternal right and is labeled A. [place]- to-rump length measures 13.6 mm, which corresponds to 7 weeks and 5 days +/- 1 week. heart rate is 160 beats/minute. Fetus B is on the maternal left with hjgqs-ja-uthi length measuring 11 mm, which corresponds to 7 weeks and 2 days +/- 1 week. heart rate 142 beats/minute. Fetus C is superior to fetus A and fetus B with a frcme-ys-duyu length measuring 4 mm and does not [...] 08/20/20 11:43, AML [address] [place] [address] PHONE: [phone] FAX: [phone] Name .................. : MAHAMED Carroll Acct Number.................. : [id number] ROOM. ........ ......... : MR Number ................... : [id number] Stay type ............. : O/P Discharge Date......... ... : 08/19/20 Admit Date ......... : 08/19/20 Admit Phys .................... : SULTANA GAMBOA Date of ....... : 1985 Family Phys ................... : UNKNOWN Phone .................. : [phone] Age ................................ : 35 Film# .................. .:[id number] Sex ................................. : F Unsigned transcriptions are preliminary reports and do not represent a medical or legal document [place] [id number] COMPLETE:08/19/20 10:33 KNB [id number] Reason for Exam: VIABILITY,DATING Transcribe Initials: SSR, Transcribe Date: 08/19/20 12:49, Dictation Date: Copy for: SULTANA MONGE via fax Copy for: [facility] REC Page 2 of 2 Name Value Range Interpretation Code Description Data Lupe rce(s) Supporting Document(s) ID Date Data Source [id number] 03/27/2020 07:15:00 AM EST [facility] Name Value Range Interpretation Code Description Data Lupe rce(s) Supporting Document(s) SARS coronavirus 2 RNA [facility] This lab was ordered by HELENA villaseñor and reported by [facility]. Procedure Social History No Information Vital Signs ID Date Data Source [id number] 11/23/2020 02:18:33 PM EDT [facility] Name Value Range Interpretation Code Description Data Source(s) WEIGHT RECORDED 167.00 pounds 167.00 pounds Car [facility] Height 53 Inches 053 Inches [facility]
[2021-02-21] MEDS ORDERED: PRED10TA2 PO (19:34)
[2021-02-21] MEDS ORDERED: VALA1TAB5 PO (19:34)
[2021-02-21 19:45] VITALS: BP 137/89
--- NOTE | 2021-02-21 20:19 | ECGEPIP ---
[facility] - ED Test Date: 2021-02-21 Pat Name: ROX IRBY Department: Room: - Gender: Female Residential Tech: raul : 1985 Requested By: SYED Reis Order Number: [id number] Reading MD: Cory Davis Measurements Intervals [place] Rate: 92 P: 68 NM: 158 QRS: 62 QRSD: 74 T: 36 QT: 344 QTc: 425 Interpretive Statements Normal sinus rhythm Comparison tracing not on file Electronically Signed on 02-21-2021 20:19:05 EST by Cory Davis
[2021-02-21 21:14] LABS: ALT/SGPT 22 U/L (12-78); BILIRUBIN,TOTAL 0.2 MG/DL (0.2-1.0); LDH LACTATE DEHYDROGENASE 205 U/L (84-246); URIC ACID 5.2 MG/DL (2.6-6.0)
[2021-02-23 16:19] LABS: Lyme Disease IgG/IgM Antibodie <0.91 ISR (0.00-0.90); Lyme Disease IgM Ab Quantitati <0.80 index (0.00-0.79)
== END 2021-02-21 20:03 | disposition admitted as inpatient to this hospital (09) ==
LOC: M ED 18:05
DX: G51.0 Bell's palsy (principal); Z3A.34 34 weeks gestation of pregnancy; K21.9 Gastro-esophageal reflux disease without esophagitis; Z79.899 Other long term (current) drug therapy; Z79.82 Long term (current) use of aspirin
CPT/HCPCS: 36415; 59025; 80048; 82247; 82550; 82553; 82565; 82570; 83615; 84156; 84450; 84460; 84484; 84550; 85025; 85610; 85730; 86617; 87798; 93005; 93041; 94760; 99285; J7512

== ENCOUNTER 2021-02-23 17:25 | Inpatient (IN) | payer OTHER ==
[2021-02-23] VITALS (19 sets, daily range): BP systolic 136–174; BP diastolic 74–105
[~2021-02-23] VITALS: Ht 160 cm; Wt 82.6 kg
[2021-02-23] MEDS ORDERED: HOME MED LIST COMPLETE! XX SCH (18:05)
[2021-02-23] MEDS ORDERED: ACETAMINOPHEN 500 MG TAB PO ONE (18:10)
[2021-02-23] MEDS ORDERED: NIFEdipine 10 MG CAP PO ONE (18:55)
[2021-02-23] MEDS ORDERED: CALCIUM GLUCONATE 1,000 MG in D5W MINI-BAG PLUS 100 ML IV PRN (19:00)
[2021-02-23] MEDS ORDERED: LIDOCAINE 1% MDV 20ML VIAL INFIL PRN (19:00)
[2021-02-23] MEDS ORDERED: OXYTOCIN INJ 10 UNITS/ML VIAL (J2590) IV PRN (19:00)
[2021-02-23] MEDS ORDERED: OXYTOCIN DRIP 30 UNITS in IV 1 EA IV PRN ×4 (19:00)
[2021-02-23] MEDS ORDERED: MAG Sulf (L&D) 4 GM/100 ML 4 GM in IV 1 EA IV ONE (19:00)
[2021-02-23] MEDS ORDERED: CARBOPROST TROMETHAMINE 250 MCG/ML AMP IM PRN (19:00)
[2021-02-23] MEDS ORDERED: miSOPROStol 50MCG 1/2 TABLET PO ONE (19:00)
[2021-02-23] MEDS ORDERED: TRANEXAMIC ACID INJection 1,000 MG in NS 100 ML IV PRN (19:00)
--- OUTSIDE RECORDS SUMMARY | 2021-02-23 19:21 | CCD ---
Author Author [facility] Organization [facility] Address Unknown Phone Unavailable Care Team Providers Care Modeling Director Name Role Phone Nwogu, U Vikram DO [...] U Vikram DO Unavailable Unavailable Nwogu, U Ivkram DO Unavailable Unavailable Nwogu, U Vikram DO [...] Unavailable WERO WEINBERG MD Unavailable Unavailable WERO WIENBERG MD Unavailable Unavailable WERO WEINBERG MD Unavailable [...] Unavailable NOSOVITCH Rivas PADILLA MD Unavailable Unavailable [place] Unavailable Unavailable RUBEN STILES Unavailable Unavailable [...] is protected by Article 27-F of the [facility] Public Health law. If you continue you may have access to information: Regarding HIV / AIDS; Provided by facilities licensed or operated by the [facility] Office of Mental Health; or Provided by the [facility] Office for People With Developmental Disabilities. If such information is present, then the following [facility] mandated warning applies: This information has been [...] law may result in a fine or assisted sentence or both. A general authorization for the release of medical or other information is NOT sufficient authorization for further disc losure. Allergies and Adverse Reactions Type Description Substance Reaction Status Data Source(s ) Allergy Allergy No Known Drug Allergies Active A [facility] ([facility]) No Known Allergies No Known Allergies [facility] Encounters Encounter Providers Location Date Indications Data Source(s ) Outpatient 02/15/2021 03:45:44 PM EST - 021 04:11:31 PM EST Isabela ([facility]) Outpatient<td><content ID="_[id number]">Office Visit</content>
<content><content styleCode="xLabel xSecondary">Encounter Reason:</content><content ID="_[id number]" styleCode="xSecondary">Office Visit - Note for "Office Visit": [...] Jasson.Her is followed by Dr. Stiles at [place]. Her has been remarkable for the twin gestation and she has been well otherwise. Her medications are famotidine, a baby aspirin and vitamins. Delivery is planned at [facility].</content></content>
<co ntent><content styleCode="xSecondary xLabel">Encounter Diagnosis:</content><content ID="_[id number]" styleCode="xSecondary">Twin gestation, dichorionic diamniotic</content> </content></td><td><content styleCode="xSecondary">01-Feb-2021 5:53 [...] Jasson.Her is followed by Dr. Stiles at [place]. Her has been remarkable for the twin gestation and she has been well otherwise. Her medications are famotidine, a baby aspirin and vitamins. Delivery is planned at [facility].Twin gestation, dichorionic diamniotic [facility] ([facility] [...] Jasson.Her is followed by Dr. Stiles at [place]. Her has been remarkable for the twin gestation and she has been well otherwise. Her medications are famotidine, a baby aspirin and vitamins. Delivery is planned at [facility]. Twin gestation, dichorionic diamniotic <td><content ID="_[id number]">Procedure Only</content>
<content><content styleCode="xSecondary xLabel">Encounter Diagnosis:</content><content ID="_[id number]" styleCode="xSecondary">In vitro fertilization</content><content styleCode="xSecondary">, </content><content [id number]" styleCode="xSecondary">Twin , antepartum</content></content></td><td><content styleCode="xSecondary">05-Jan-2021 14:00 </content><content styleCode="xLabel [...] 12:00:00 AM EDT - 12/17/2020 04:29:58 PM [facility] Outpatient Attender: ANGELINA MAIERReferrer: CASPER STILES 12/17/2020 12:00:00 AM [facility] Outpatient Attender: Vikram MCCRARY ttender: RONNI WATTERS MDConsultant: [facility] 11/20/2020 07:57:00 AM EDT - 11/20/2020 11:30:00 AM EDT [facility] Patient discharged. Emergency Attender: JORGE LEE MDConsultant: [facility] 10/02/2020 08:12:00 PM EDT - 10/02/2020 09:05:00 PM EDT [facility] Patient discharged. Outpatient Attender: MARIPOSA WEINBERG MDConsultant: [facility] 08/19/2020 09:16:00 AM EDT - 08/19/2020 10:16:00 AM EDT [facility] Immunizations Vaccine Date Status Description Data Source(s) COVID-19 VACCINE Moderna 01/18/2021 12:00:00 AM EDT completed [facility] Vaccine Series Complete: YESThis Data wa s Submitted to [facility] Via [employer]. COVID-19 VACCINE Moderna 12/19/2020 12:00:00 AM EDT completed [facility] Vaccine Series Complete: NOThis Data was Submitted to [facility] Via [employer]. Medications No Information Insurance Providers Payer name Policy type / Coverage type Policy ID Covered green party ID Covered green party's relationship to la Policy La Plan Information U [id number] Self [id number] FFS Self Pay [id number] Self [id number] [facility] ACTIVE DUTY [id number] SP [id number] [facility] HUMANA - O/P [id number] 18 [id number] F F [facility] HUMANA [id number] SP [id number] [employer] [place] [facility] O [id number] S [id number] Problems, Conditions, and Diagnoses Code Display Name Description Problem Type Effective Dates Data Source(s) Z3A21 21 weeks gestation of 21 weeks gestation of Diagnosis 11/20/2020 07:57:00 AM EDT [facility] R102 Pelvic and perineal pain Pelvic and perineal pain Diag nosis 11/20[facility] Other specified related condit ions, second trimester Other specified related conditions, second trimester Diagnosis 11/20/2020 07:57:00 AM EDT [facility] S67659 Twin , unable to de termine number of placenta and number of amniotic sacs, second trimester Twin , unable to determine numb er of placenta and number of amniotic sacs, second trimester Diagnosis 11/20/2020 07:57:00 AM EDT [facility] 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 Diagnosis 10/02/2020 08:12:00 PM EDT [facility] Z3A14 14 weeks gestation of 14 weeks gestation of Diagnosis 10/02/2020 08:12:00 PM EDT [facility] O2242 Hemorrhoids in , second trimest er Hemorrhoids in , second trimester Diagnosis 10/02/2020 08:12:00 PM EDT [facility] O0900 Supervision of wit h history of infertility, unspecified trimester Supervision of with history of infertility, unspecified trimester Diagnosis 08/19/2020 09:16:00 AM EDT [facility] Surgeries/Procedures Procedure Description Date Indications Data Source(s) [...] [facility]) Results ID Date Data Source [id number] 02/15/2021 04:00:00 PM EST [facility] Name Value Range Interpretation Code Description Data Lupe rce(s) Supporting Document(s) SARS-CoV-2 RNA Resp Ql ALISA+probe NOT DETECTED [facility] This lab was ordered by NASEEM pike and reported by NASEEM Whyte. ID Date Data Source [id number] 01/07/2021 07:23:00 PM EDT [facility] Name Value Range Interpretation Code Description Data Lupe rce(s) Supporting Document(s) Progress Note [facility] NCAAEx3kZlILAbPp77/GMJhtYPTth1DxKUvqLJx2ZWvfSYWiO1EiFMR3oP8wLIS2AFfMKgFpEnEyFZFq lbm [file] Zn1KFmHpUSMJBsWfBR4RAKa= ID Date Data Source [id number] 12/22/2020 10:00:23 PM EDT [facility] Name Value Range Interpretation Code Description Data Lupe rce(s) Supporting Document(s) Progress Note [facility] IPRHQg9aKaAUArEl20/MFCpjJBKza9PxOCzrSZo1EBfpGPSfD6HwAMT9tU8jUVS9GNqHIwIhFhTiFZH2 lbm [file] AgICAgICAgICAgICAgICAgICAgICAgICAgICAgICAg ZRLxHTNaIGNpLDQmZJYhLWYbUECgUDSuWZBuVMWiZPNqXLGhEZQfIHJcUZOmHTVdYWTuIJBlEKUaZP3C ICAgICAgICAgICAgICAgICAgICAgICAgICAgICAgICAgICAgICAgICAgICAgICAgICAgICAgICAgICAg ICAgICAgICAgICAgICAgICAgICAgICAgICAgICAgIC EuAREtOWPqSE1SQORbIKAiZNRcOIWlTGZgUPBsIWCoQMZiWXJtPLEmGIPdWTSzXSEyJMDvKJDnOZZrRZ RyHSArWZJpDEXhBXKrOJLrFRVnHTJxIAJzSIDzKCNrNLGiJLLmMRRcMFDaHATzJFFzFU6UBOCcZIWnFQ AgICAgICAgICAgICAgICAgICAgICAgICAgICAgICAg ICAgICAgICAgICAgICAgICAgICAgICAgICAgICAgICAgICAgICAgICAgICAgICAgICAgICAgICAgICAg WX7VKWYgFDDeGFVyYRHxGWRpRYBbDQRmYKLdLHZpMEHsGQHgSMMlVOSkFQSqSVNxISCiEEPqGHUxMICr ICAgICAgICAgICAgICAgICAgICAgICAgICAgICAgIC CxWKZnZIUiEKCiQG8PVBKrPTBxVIIjVTZtNEYfVGQlZLJjCNNwYDYkUSBmVVHyJZXjAGEfNNSnUTPnKX TbUTWvUTVqOEQhTSWxSEGwQSQrQJAfOYUfTLRfWCTfYPHfYRCwMVGbERImBDLeVUBhUAWyAJ4HUTLhUJ AgICAgICAgICAgICAgICAgICAgICAgICAgICAgICAg ICAgICAgICAgICAgICAgICAgICAgICAgICAgICAgICAgICAgICAgICAgICAgICAgICAgICAgICAgICAg NBEyQV3YQKPoEQOvYBSzSCJdCNOtMMKvZCRkTTBlDOTlUFEmLMRqJMXaSGLiBIAlYHUbKCYnDFWaJOFt ICAgICAgICAgICAgICAgICAgICAgICAgICAgICAgIC TpGEMkBTRsKDQpDLCrUS7YVGCyTHKxLSXxBLVvOYVmQFUbKDCvMCHyPCIgQPYlPJTpEDEdEZKhMXZqHX FfWXZoQPAqFRNuXHIeXGSbQUAtUITzTDJyUODoYMRhHKRyGJGyXEWaMDXxLUHuUKQiFBTwIIDcOR7DPB 02vHVfq5M3RHEcWT1rkkz/Bd3KWAoxroZpnAYcYR2J BtTuTJ6ffp3RRlPzTN7wxj6RQXyYCbTgX4K8xCXaHVFgYMUZRdQlE48cZIekLo60GEwdUSCdMpBlUSy7 Mo2DZjOjH7zmPNZjQoV3GRWiQsA4QGYgEuX5GZScSrMsFWoaZP2Vt2RdxAZoBSp+Ys8CYR9pw5GdUBln RzUhBH7kei0LQUpWPsLdL3KkhoR7XIX5XGOdBq4YUZ ApIVVwpVCoPzUfTABPApHxX2PnfE23XUYKCu7+JBxdxoTwKtbGJfN0RPEbe2PyLKn7NC9HODMiAMi3mP RuACDtJ7Oow5OzSt25NRZrXmaiYYIzaqDlTRkvYPLwNTenDQUYGRCbsBN8LjsnEjAnAYIkTaucEEGBIV vUOrZoT4Twm7GnKgL9LMEeInJwQPwwCJMeIbE5HL22 aNjiRI0NUJXaZVIsBX10LOY3QBYuJm6ZJy9FNiSoXG2xnk8HPzooVCMoPkyHBqk7RQdzQE9OrFYtP9Dj uWAzx1qGUgPaD5TVVST7DCHjHq0HRLNySlNcRHGnLSthLP9wIEEmUCYZwFjspkG1IU3NKU6tltMmEZ8C GuTrRg5aDq8NRtRpS3GuY7RuMBQeUJDCRRslHS2CRR veQI1gTQ0Uc2WNbTHkoO6moz3DIQXaINOqPfnske8UVttdE2L8vWdfFBMbFeMoNASMZWtuPL2HJDMjUU W1YGCzVXPiWPVGBbOhO97tNG2AB3Uxk90eMyH1TTEaGlLvOVtwLW51lTxeudKhxETrjXnvNV2BTe6+DQ plbmRvYmoNCnhyZWYNCjAgMjkNCjAwMDAwMDAwMDAg ZsW2HnBlBh2YLZDyMJYdOKCaNvJdBOSzWHLaAKbmWUZlWLJgZAEiGLUdSTSeGL8WKjDbMMSbBQApMUBz EDRuNLRnkm8ZJQPkUQDwXVU3HxMrFURxOYHoHLdjZLLvAKU6XgNnIPPdGTCeJM6LBuGiNBLnLLH5UuMj WVQgDSOqjq5UWMUyWDFtXoU7GfZlUJChXFOlXPprMB IiRMW5Imw8EOHwKLGnNM1BKzKfHHZlLUkuQPZvMDClLHRilx4ALZYhUZQoVKF2FMNzJVUsFZDqBXfxMG GvDOVpVQQmEPJtUUChZB0CMgAfRAHxWDI9LJyeNCJvZIJmmk6ASYEmEWByHBnoIJGcKIIjGBOwPPctFP ZxPBIrDcD7EFQuVIDfNQ2VPxQyDGFkWAL5FkDbLRDn UIKoke6ZZWGzEVTzOiH2RVYpYZCwRYLySWqpQUBwBUVjSJE8JYZzERLxKJ7PLoPpNIEqLYMqDCbpEGAn KXGgfx9DKDXjESW1UEUhKeLxWRTdRMSiUXsqLVUxZKItCCIqPMStRKEfEY7BHcQqINUvVAOwQSxcWGQl EFCzkb6TITXxPSI2BbTaNsOjYHPgYOMqICfmBIBhCX CrFhNsZHJgEAQqGZ7IAmGsTAXgHWTfPSayYZOlMFWqhp5DZPUhIPE7ZuseToZoKENpXMBsECamHYKxVH N6LiY6BGIeAIVxCJ9STmLcBDZmYKRlNfyfZBJnSJJxqd2OVDPxVTO9OXW4UiYhIBUwYIDyUVn5erPhkL QyLHe6WD4EO9OsknLpDdgRUo7Eo362PNX2HFOkBj9R O5syZt9fMXGrQXRGFo1BTWo3ZHR2TMZ9BmA5DJY1BEA7ZGX7AzN8EOU3SBM5WhPkWAl+NTs2DKPiUsLq RxQlRQi4NCCfUTufDYAuHZa5CBQ5ZYZxMY3xBFCNIk6+XCldcYQptRfjQADECoQ7NnUwCPrpJFVIQw0H ID Date Data Source [id number] 11/22/2020 04:53:00 PM EDT [facility] Name Value Range Interpretation Code Description Data Lupe rce(s) Supporting Document(s) CULTURE URINE [facility] _CULTURE URINE_$$[id number]$$[id number]$$[id number]$$640217$$102676$$645639$$730779$$837474$$847918$$ 837187$$573896$$103490$$683725$$793895$$839812$$334735$$544773$$406264$$376029$$ 844124$$440527$$601460$$197735$$628768$$663904$$356099$$559529 -- Continued on next page --Patient: MAHAMED Carroll Order: [id number] Page 2Culture: CULTURE URINE Status: Final ====$$[id number]$$[id number] DATE/TIME: 11/22/2020 08:06Culture: CULTURE URINE Status: FinalUrine Culture,Comprehensive: N3Gbpih urogenital flora25,000-50,000 colony forming units per mLP1 Test performed by: Rain ATKINS #: [id number] [address] [place] [address] [id number] [facility] [id number] Director : Félix Escobar MD NPI #:Tube Tester : 11/[email or web address] REF ID Date Data Source [id number] 11/20/2020 09:33:00 AM EDT [facility] Name Value Range Interpretation Code Description Data Lupe rce(s) Supporting Document(s) [facility] SOURCE R [facility] Hospit al COLOR yellow NORMAL: Yellow [facility] ospital CLARITY clear NORMAL: Clear [facility] Specific gravity of Urine by Test strip 1.020 1.001 - 1.030 [facility] pH 6.5 5 - 9 [facility] Glucose [Mass/volume] in Urine by Test strip NORM NORMAL: Negat [facility] Bilirubin.total [Presence] in Urine by Test strip NEG NORMAL: Negative [facility] Ketones [Presence] in Urine by Test strip NEG NORMAL: Negative [facility] Protein [Mass/volume] in Urine by Test strip NEG NORMAL: Negat [facility] Nitrite [Presence] in Urine by Test strip NEG NORMAL: Negative [facility] BLOOD NEG NORMAL: Negative [facility] LEUK EST NEG NORMAL: Negative [facility] Urobilinogen [Mass/volume] in Urine by Test strip NOR less geovanna n 1.0 mg/dL [facility] MICROSCOPIC Not Indicate [facility]ital ID Date Data Source [id number] 10/02/2020 08:12:00 PM EDT [facility] 1 OrderSheet [facility] Emergency Department [address] [place] [address] Phone #: ext- [phone] 10/02/2020 20:06 Patient: ROX IRBY Sex: F [...] rce(s) Supporting Document(s) ID Date Data Source [id number] 10/02/2020 08:12:00 PM EDT [facility] 1 Medication Reconciliation Report [facility] Emergency Department [address] [place] [address] Phone #: ext- [phone] 10/02/2020 20:06 Patient: [...] Dispense 1 can. Refills: 0.Substitution permitted.Pharmacy - [facility] [phone] ; [place] [address]. .Proctofoam HC 1 %-1 % Apply 1 foam four times a day for 21 days -- Dispense 1 can. Refills: 0.Substitution permitted.Pharmacy - [facility] [phone] ; [place] [address]. . -- ANJALI Mancilla Name Value Range Interpretation Code Description Data Lupe rce(s) Supporting Document(s) ID Date Data Source [id number] 10/02/2020 08:12:00 PM EDT [place] [address] Medication Administration Record [facility] Emergency Department [address] [place] [address] Phone #: ext [phone] 10/02/2020 20:06 Patient: ROX IRBY Sex: F : 1985 Age: 35yWeight: 71.6 kgHeight/Length: 63 inBMI: 28ALLERGIES: NoneDate/Time Medication Administered Medication Ordered Name Value Range Interpretation Code Description Data Lupe rce(s) Supporting Document(s) ID Date Data Source [id number] 10/02/2020 08:12:00 PM EDT [place] [address] General Instructions [facility] Emergency Department [address] [place] [address] Phone #: ext [phone] 10/02/2020 20:06 Patient: ROX IRBY Sex: Jazmín [...] Dispense 1 can. Refills: 0.Substitution permitted.Pharmacy - [facility] [phone] ; [place] [address]. FaxNumber: .Proctofoam HC 1 %-1 % Apply 1 foam four times a day for 21 days -- Dispense 1 can. Refills: 0.Substitution permitted.Pharmacy - [facility] [phone] ; [place] [address]. .Follow-up:Follow up with your doctor Monday if not better. Reason for referral: evaluation and treatment. Summary ofcare provided to family. Understanding of the discharge instructions verbalized by patient. ADDITIONAL INFORMATION 2 General Instructions [facility] Emergency Department [address] [place] [address] Phone #: ext- [phone] 10/02/2020 20:06 Patient: [...] leaks from the anus 3 General Instructions [facility] Emergency Department [address] [place] [address] Phone #: ext- [phone] 10/02/2020 20:06 Patient: [...] and outpatient office treatments. 4 General Instructions [facility] Emergency Department [address] [place] [address] Phone #: ext- [phone] 10/02/2020 20:06 Patient: [...] blood in stool or black, tarry stools [employer]. [address] [place] [address]. All rights reserved. This information is not intended as asubstitute for professional medical care. Always follow your healthcare professional's instructions. You have been given the following additional information: Hemorrhoids(Electronically signed by ANJALI Mancilla 10/02/2020 22:17) Name Value Range Interpretation Code Description Data Lupe rce(s) Supporting Document(s) ID Date Data Source [id number] 10/02/2020 08:12:00 PM EDT [facility] 1 Clinical Report - Nurses [facility] Emergency Department [address] [place] [address] Phone #: [phone]- [phone] 10/02/2020 20:06 Patient: ROX IRBY Sex: F [...] or CRE. 2 Clinical Report - Nurses [facility] Emergency Department [address] [place] [address] Phone #: ext- [phone] 10/02/2020 20:06 Patient: [...] Patient verbalized understanding. Written instructions provided in [place] Leonean. The patient was discharged by the physician registered nurse first assistant. She was discharged home. She left ambulatory and via private vehicle. Visual Effects Artist driving. --21:10/02/20 Emily Booth R.N. 21:02 10/02/20. BP: 138/92. MAP: 107. HR: 102. RR: 12. O2 saturation: 98%. Temp: 98.8 F. Pain level now: 09/17. --21:10/02/20 Emily Booth R.N.Locked/Released at 10/02/2020 23:56 by Emily Booth R.N. Name Value Range Interpretation Code Description Data Lupe rce(s) Supporting Document(s) ID Date Data Source [id number] 10/02/2020 08:12:00 PM EDT [facility] 1 Clinical Report - Physicians/Mid Levels [facility] Emergency Department [address] [place] [address] Phone #: ext- [phone] 10/02/2020 20:06 Patient: [...] EXAM 2 Clinical Report - Physicians/Mid Levels [facility] Emergency Department [address] [place] [address] Phone #: ext- [phone] 10/02/2020 20:06 Patient: ROX IRBY Sex: F [...] Oral. 3 Clinical Report - Physicians/Mid Levels [facility] Emergency Department [address] [place] [address] Phone #: ext- [phone] 10/02/2020 20:06 Patient: ROX IRBY Sex: F : 1985 Age: 35y Folic Acid Oral. Naltrexone HCl Oral. PNV*. Prescription Medications: Metamucil (sugar) oral powder Take 1 scoop once a day for 30 days -- Dispense 1 can. Refills: 0. Substitution permitted. Pharmacy - [facility] [phone] ; [place] [address]. FaxNumber: . Proctofoam HC 1 %-1 % Apply 1 foam four times a day for 21 days -- Dispense 1 can. Refills: 0. Substitution permitted. Pharmacy - [facility] [phone] ; [place] [address]. . Follow-up: Follow up with your doctor Monday if not better. Reason for referral: evaluation and treatment. Summary of care provided to family. Understanding of the discharge instructions verbalized by patient.(Electronically signed by ANJALI Mancilla 10/02/2020 22:17) Name Value Range Interpretation Code Description Data Lupe rce(s) Supporting Document(s) ID Date Data Source [id number] 08/20/2020 11:43:00 AM EDT [facility] [address] [place] [address] PHONE: [phone] FAX: [phone] Name .................. : MAHAMED Carroll Acct Number.................. : [id number] ROOM. ................. : Number ................... : [id number] Stay type ............. : O/P Discharge Date......... ... : 08/19/20 Admit Date ....... .. : 08/19/20 Admit Phys .................... : SULTANA GAMBOA Date of ....... : 1985 Family Phys ................... : UNKNOWN Phone .................. : [phone] Age ................................ : 35 Film# .................. .:[id number] Sex ................................. : F Unsigned transcriptions are preliminary reports and do not represent a medical or legal [place] [id number] COMPLETE:08/19/20 10:33 B [id number] Reason for Exam: VIABILITY,DATING TRANSVAGINAL PELVIC SONOGRAM, 08/19/20: INDICATION: Viability and dating. FINDINGS: Uterus measures 5.3 x 6.1 x 8.5 cm in size. Right ovary measures 3.1 x 2.9 x 1.4 cm. Left ovary measures 2.2 x 2.0 x 1.6 cm. There are three intrauterine gestations identified. The first is on the maternal right and is labeled A. [place]- to-rump length measures 13.6 mm, which corresponds to 7 weeks and 5 days +/- 1 week. heart rate is 160 beats/minute. Fetus B is on the maternal left with jtgyt-rq-ntsm length measuring 11 mm, which corresponds to 7 weeks and 2 days +/- 1 week. heart rate 142 beats/minute. Fetus C is superior to fetus A and fetus B with a hzwnk-fu-lmlj length measuring 4 mm and does not [...] 08/20/20 11:43, AML Page 1 of 2 [place] [address] PHONE: [phone] FAX: [phone] Name .................. : MAHAMED Carroll Acct Number.................. : [id number] ROOM. ........ ......... : MR Number ................... : [id number] Stay type ............. : O/P Discharge Date......... ... : 08/19/20 Admit Date ......... : 08/19/20 Admit Phys .................... : SULTANA GAMBOA Date of ....... : 1985 Family Phys ................... : UNKNOWN Phone .................. : [phone] Age ................................ : 35 Film# .................. .:[id number] Sex ................................. : F Unsigned transcriptions are preliminary reports and do not represent a medical or legal [place] [id number] COMPLETE:08/19/20 10:33 KNB [id number] Reason for Exam: VIABILITY,DATING Transcribe Initials: SSR, Transcribe Date: 08/19/20 12:49, Dictation Date: Copy for: SULTANA MONGE via fax Copy for: [address] [place] [address] REC Page 2 of 2 Name Value Range Interpretation Code Description Data Lupe rce(s) Supporting Document(s) ID Date Data Source [id number] 03/27/2020 07:15:00 AM EST [facility] Name Value Range Interpretation Code Description Data Lupe rce(s) Supporting Document(s) SARS coronavirus 2 RNA [facility] This lab was ordered by HELENA villaseñor and reported by [facility]. Procedure Social History No Information Vital Signs ID Date Data Source [id number] 11/23/2020 02:18:33 PM EDT [facility] Name Value Range Interpretation Code Description Data Source(s) WEIGHT RECORDED 167.00 pounds 167.00 pounds [facility] Height 53 Inches 053 Inches [facility]
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
[2021-02-23] MEDS: BETAMETHASONE SOLUSPAN 6MG/ML 5ML VIAL (J0702 PER 3MG) IM SCH (20:03)
[2021-02-23 20:15] LABS: ALT/SGPT 23 U/L (12-78); BILIRUBIN,TOTAL 0.2 MG/DL (0.2-1.0); CREATININE FOR GFR 0.74 MG/DL (0.55-1.30); GLOMERULAR FILTRATION RATE > 60.0 (>60); LDH LACTATE DEHYDROGENASE 227 U/L (84-246)
[2021-02-23] MEDS ORDERED: PENICILLIN G POTASSIUM IV 5 MU in D5W MINI-BAG PLUS 100 ML IV STA (20:27)
[2021-02-23] MEDS ORDERED: predniSONE 20 MG TAB PO ONE (20:30)
[2021-02-23] MEDS: MAG Sulf (OBGYN) 20GM/500ML 20,000 MG in IV 1 EA IV SCH (21:31)
[2021-02-23] MEDS: valACYclovir HCL 500 MG TAB PO SCH (21:36)
[2021-02-23] MEDS: NS 1,000 ML IV SCH (21:40)
[2021-02-23] MEDS ORDERED: LABETALOL 100MG/20ML VIAL IV STA (21:55)
[2021-02-24] VITALS (46 sets, daily range): BP systolic 129–167; BP diastolic 68–101
[2021-02-24] MEDS: miSOPROStol 50MCG 1/2 TABLET PO SCH ×5 (00:34→16:30)
[2021-02-24] MEDS: PENICILLIN G POTASSIUM IV 2.5 MU in IV 1 EA IV SCH ×6 (01:44→21:51)
[2021-02-24] MEDS ORDERED: NovoLOG MIX 70/30 PER UNIT SC ONE (02:40)
[2021-02-24] MEDS ORDERED: CALCIUM CARBONATE 500 MG CHEW U/D PO ONE (04:50)
[2021-02-24] MEDS: MAG Sulf (OBGYN) 20GM/500ML 20,000 MG in IV 1 EA IV SCH ×2 (06:35→16:50)
--- NOTE | 2021-02-24 07:18 | IPNPDOC ---
Obstetrical Progress Note Date of Service Feb 24, 2021 Subjective Summary of care since admission Patient is sleeping comfortably in bed BP: Mild range BP this morning, has received 2 doses of IV antihypertensives, has 10mg of PO procardia on admission and 20mg of IV Labetalol cervical ripening: has received 3 doses of 50mcg cytotec, last was at 530 am. admission exam was C/T/H. Contractions are q3-4 min. A1GDM: Had one dose of bethamethasone so she had Elevated Glucose, received 2 u of aspart PCN: Has received 3 doses STEROID: First dose was aroung 630pm on 02/23/2021 Mag: started on admission, getting 2mg/hr, Great UOP hourly On home meds for bells palsy: meds ordered, prednesone and valtrex FHT A: 135, Mod conner, + accels, no decel--cat I tracing now in a sleep cycle FHTB: 120, Mod conner, +accels, -decel--cat I tracing A/P CAT I tracing for both baby. will write for insulin protocol. Objective Vital Signs Date Time Temp Pulse Resp B/P (MAP) Pulse Ox O2 Delivery O2 Flow Rate FiO2 02/24/21 05:32 83 18 144/81 (102) 02/24/21 03:32 98.4 02/23/21 22:29 99 DIANNE NASH MD Feb 24, 2021 07:18
[2021-02-24] MEDS ORDERED: INSULIN IV RATE CHANGE DOCUMENTATION ML/HR XX SCH (07:20)
[2021-02-24] MEDS ORDERED: INSULIN REGULAR IN 0.9 % NACL 100 UNIT in IV 1 EA IV SCH ×2 (07:20)
[2021-02-24] MEDS ORDERED: HumaLOG INSULIN (NovoLOG) PER UNIT SC PRN ×2 (07:40)
[2021-02-24] MEDS ORDERED: LABETALOL 100MG/20ML VIAL IV STA ×2 (07:48→08:34)
[2021-02-24] MEDS: valACYclovir HCL 500 MG TAB PO SCH ×3 (09:00→20:26)
[2021-02-24] MEDS: BETAMETHASONE SOLUSPAN 6MG/ML 5ML VIAL (J0702 PER 3MG) IM SCH (09:05)
[2021-02-24 11:10] LABS: CREATININE,RANDOM URINE 19.5 MG/DL; TOTAL PROTEIN,RANDOM URINE 10.6 MG/DL (0.0-12.0)
[2021-02-24 11:25] LABS: HEMATOCRIT 37.6 % (36.0-47.0); HEMOGLOBIN 12.8 g/dl (12.0-15.5); MEAN CORPUSCULAR HEMOGLOBIN 32.5 pg (27.0-33.0); MEAN CORPUSCULAR VOLUME 95.4 fl (80.0-96.0); PLATELET COUNT, AUTOMATED 217 10^3/uL (150-450); RED BLOOD COUNT 3.94 10^6/uL (4.00-5.40); WHITE BLOOD COUNT 8.1 10^3/uL (4.0-10.0)
--- NOTE | 2021-02-24 11:38 | IPNPDOC ---
Text Note Date of Service The patient was seen on 02/24/21. NOTE Vital Signs Label Value Date Time Blood Pressure Assessment 166/92 (116) 02/24/21 1125 Source Automatic Cuff (NIBP) Pulse 86 02/24/21 1125 Pulse 70 02/24/21 1055 Respiratory Rate 18 bpm 02/24/21 1055 Blood Pressure Assessment 142/83 (102) 02/24/21 1055 Source Automatic Cuff (NIBP) Blood Pressure Assessment 141/87 (105) 02/24/21 1024 Source Automatic Cuff (NIBP) Respiratory Rate 18 bpm 02/24/21 1024 Pulse 75 02/24/21 1024 Pulse 79 02/24/21 0955 Respiratory Rate 18 bpm 02/24/21 0955 Blood Pressure Assessment 155/85 (108) 02/24/21 0955 Source Automatic Cuff (NIBP) Blood Pressure Assessment 147/82 (103) 02/24/21 0923 Source Automatic Cuff (NIBP) Respiratory Rate 18 bpm 02/24/21 0923 Pulse 75 02/24/21 0923 Pulse 76 02/24/21 0913 Respiratory Rate 18 bpm 02/24/21 0913 Blood Pressure Assessment 143/89 (107) 02/24/21 0913 Source Automatic Cuff (NIBP) Blood Pressure Assessment 162/93 (116) 02/24/21 0903 Source Automatic Cuff (NIBP) Respiratory Rate 18 bpm 02/24/21 0903 Pulse 86 02/24/21 0903 Pulse 77 02/24/21 0853 Respiratory Rate 18 bpm 02/24/21 0853 Blood Pressure Assessment 150/86 (107) 02/24/21 0853 Source Automatic Cuff (NIBP) Blood Pressure Assessment 140/84 (102) 02/24/21 0845 Source Automatic Cuff (NIBP) Respiratory Rate 18 bpm 02/24/21 0845 Pulse 77 02/24/21 0845 Blood Pressure Assessment 165/93 02/24/21 0829 Blood Pressure Assessment 165/93 (117) 02/24/21 0827 Source Automatic Cuff (NIBP) Respiratory Rate 18 bpm 02/24/21 0827 Pulse 83 02/24/21 0827 Pulse 75 02/24/21 0812 Respiratory Rate 18 bpm 02/24/21 0812 Blood Pressure Assessment 157/91 (113) 02/24/21 0812 Source Automatic Cuff (NIBP) Patient Temperature 98.3 degrees F 02/24/21 0802 Temperature Source Temporal 02/24/21 0802 Pulse 83 02/24/21 0756 Blood Pressure Assessment 166/101 02/24/21 0756 Blood Pressure Assessment 166/101 (122) 02/24/21 0732 Source Automatic Cuff (NIBP) Respiratory Rate 18 bpm 02/24/21 0732 Pulse 83 02/24/21 0732 Pulse 83 02/24/21 0532 Respiratory Rate 18 bpm 02/24/21 0532 Blood Pressure Assessment 144/81 (102) 02/24/21 0532 Source Automatic Cuff (NIBP) Blood Pressure Assessment 156/81 (106) 02/24/21 0432 Source Automatic Cuff (NIBP) Respiratory Rate 18 bpm 02/24/21 0432 Pulse 79 02/24/21 0432 Patient Temperature 98.4 degrees F 02/24/21 0332 Temperature Source Temporal 02/24/21 0332 Pulse 80 02/24/21 0332 Respiratory Rate 18 bpm 02/24/21 0332 Blood Pressure Assessment 143/80 (101) 02/24/21 0332 Source Automatic Cuff (NIBP) Blood Pressure Assessment 141/82 (101) 02/24/21 0230 Source Automatic Cuff (NIBP) Respiratory Rate 18 bpm 02/24/21 0230 Pulse 82 02/24/21 0230 Pulse 88 02/24/21 0215 Respiratory Rate 18 bpm 02/24/21 0215 Blood Pressure Assessment 157/79 (105) 02/24/21 0140 Source Automatic Cuff (NIBP) Respiratory Rate 18 bpm 02/24/21 0140 Pulse 77 02/24/21 0140 Pulse 86 02/24/21 0116 Respiratory Rate 18 bpm 02/24/21 0116 Blood Pressure Assessment 167/88 (114) 02/24/21 0116 Source Automatic Cuff (NIBP) Blood Pressure Assessment 138/74 (95) 02/24/21 0015 Source Automatic Cuff (NIBP) Respiratory Rate 18 bpm 02/24/21 0015 Pulse 78 02/24/21 0015 Pulse 78 02/23/21 2314 Respiratory Rate 18 bpm 02/23/21 2314 Blood Pressure Assessment 148/77 (100) 02/23/21 2314 Source Automatic Cuff (NIBP) Blood Pressure Assessment 136/75 (95) 02/23/21 2259 Source Automatic Cuff (NIBP) Respiratory Rate 18 bpm 11/16/21 2259 Pulse 80 02/23/212258 Respiratory Rate 18 bpm 02/23/212243 Blood Pressure Assessment 145/81 (102) 02/23/212243 Source Automatic Cuff (NIBP) Blood Pressure Assessment 145/84 (104) 02/23/212227 Source Automatic Cuff (NIBP) Pulse 81 02/23/218 Respiratory Rate 18 bpm 02/23/21 222 Patient Temperature 97.6 degrees F 02/23/21 221 Temperature Source Temporal 02/23/212213 Pulse 85 02/23/212213 Respiratory Rate 18 bpm 02/23/212213 Blood Pressure Assessment 150/89 (109) 02/23/212213 Source Automatic Cuff (NIBP) Blood Pressure Assessment 168/97 02/23/212200 Pulse 88 02/23/212200 Blood Pressure Assessment 168/97 (120) 02/23/212157 Source Automatic Cuff (NIBP) Respiratory Rate 18 bpm 02/23/212157 Pulse 94 02/23/212157 Pulse 97 02/23/212144 Respiratory Rate 18 bpm 02/23/212144 Blood Pressure Assessment 163/90 (114) 02/23/212144 Source Automatic Cuff (NIBP) Respiratory Rate 18 bpm 02/23/212127 Pulse 95 02/23/212127 Blood Pressure Assessment 171/89 (116) 02/23/212127 Source Automatic Cuff (NIBP) Blood Pressure Assessment 172/95 (120) 02/23/212112 Source Automatic Cuff (NIBP) Respiratory Rate 18 bpm 02/23/212112 Pulse 96 02/23/212112 Pulse 98 02/23/212057 Respiratory Rate 18 bpm 02/23/212057 Blood Pressure Assessment 165/90 (115) 02/23/212057 Source Automatic Cuff (NIBP) Blood Pressure Assessment 166/87 (113) 02/23/212043 Source Automatic Cuff (NIBP) Respiratory Rate 18 bpm 02/23/212043 Pulse 102 02/23/212043 Blood Pressure Assessment 151/74 (99) 02/23/212028 Source Automatic Cuff (NIBP) Respiratory Rate 18 bpm 02/23/212028 Pulse 97 02/23/212028 Pulse 103 02/23/212013 Respiratory Rate 18 bpm 02/23/212013 Blood Pressure Assessment 174/101 (125) 02/23/212013 Source Automatic Cuff (NIBP) Blood Pressure Assessment 151/97 (115) 02/23/21 192 Source Automatic Cuff (NIBP) Respiratory Rate 18 bpm 02/23/21 192 Pulse 103 02/23/21 192 Blood Pressure Assessment 166/96 (119) 02/23/21 1858 Source Automatic Cuff (NIBP) Respiratory Rate 18 bpm 02/23/21 1858 Pulse 89 02/23/21 185 Pulse 86 02/23/21 184 Respiratory Rate 18 bpm 02/23/21 1843 Blood Pressure Assessment 171/105 (127) 02/23/21 184 Source Automatic Cuff (NIBP) Blood Pressure Assessment 173/99 (123) 02/23/21 1829 Source Automatic Cuff (NIBP) Respiratory Rate 18 bpm 02/23/21 182 Pulse 84 02/23/21 1829 Pulse 80 02/23/21 1810 Blood Pressure Assessment 155/96 (115) 02/23/21 181 Source Automatic Cuff (NIBP) Respiratory Rate 18 bpm 02/23/21 1810 Respiratory Rate 18 bpm 02/23/21 1752 Blood Pressure Assessment 159/102 (121) 02/23/21 1752 Source Automatic Cuff (NIBP) Patient Temperature 99.1 degrees F 02/23/21 175 Temperature Source Temporal 02/23/21 1752 Bad table104/26/20 review progress to date.ADMITTED FOR IOL WITH SEVER RANGE BLOOD PRESSURES WITH HEADACHE . PATIENT IS 35 YO A1 WITH FIRM DATES PATIENT WAS IVF WITH TRIPLETS WITH EARLY LOSS OF FETUS IN EARLY RISK FACTORS ARE 1. DI/DI TWINS 2. IVF 3, AGDM1 4. MARGINAL INSERTION CORD TWIN B 5. MANJARREZ'S PALSY ACUTE 6. AMA TODAY'S COMPLICATING FACTORS ARE 1. UNCONTROLLED GLUCOSE DUE TO STEROIDS FOR MANJARREZ'S PALSY 2. PRE -E WITH SEVERE FEATURES 3. PRE TERM 4. UNKNOWN GBS 5. STEROID FOR LUNG MATURITY PLAN 1.NEURO PROPHYLAXIS WITH MAGNESIUM SULFATE 2.IOL WITH CYTOTEC UNFAVORABLE CERVIX 3.INITIATE SMI FOR HYPERTENSION 4.GBS ANTIBIOTICS 5. MONITOR IN AND OUT REVIEWED OPTIONS WITH PATIENT AND PARTNER RISK IS IF PRE-E BECOMES SEVERE OR IF URINE OUTPUT DECREASED INDICATING WORSENING CONDITION THEN NEED FOR C/S WILL BE DISCUSSED AND FOR MATERNAL OR INDICATIONS C/S RECOMMENDED . EXPRESSED UNDERSTANDING NOW CATEGORY 1 STRIP URINE OUTPUT ADEQUATE PRESSURES IN MID RANGE DENIES SYMPTOMS CYTOTEC X 3RD DOSE CERVIX POSTERIOR 1 CM SOFT 50% EFFACED -3 STATION VERTEX NOT WELL APPLIED . SAFE TO PROCEED 50 MINUTES WITH ALL QUESTIONS ANSWERED . NEONATOLOGY ADVISED VS,Fishbone, I+O VS, Fishbone, I+O Item Value Date Time Urine Random Creatinine 19.5 MG/DL 02/24/21 1031 Urine Random Total Protein 10.6 MG/DL 02/24/21 1031 Laboratory Tests 02/23/21 19:29 02/24/21 11:05 Vital Signs Date Time Temp Pulse Resp B/P (MAP) Pulse Ox O2 Delivery O2 Flow Rate FiO2 02/24/21 11:25 86 166/92 (116) 02/24/21 10:55 18 02/24/21 08:02 98.3 02/23/21 22:29 99 I&O- Last 24 Hours up to 6 AM 02/24/21 06:00 Intake Total 1673 ml Output Total 2060 ml Balance -387 ml Nioc Escalante MD Feb 24, 2021 11:35
[2021-02-24] MEDS ORDERED: NIFEdipine 10 MG CAP PO STA (11:51)
[2021-02-24] MEDS: NS 1,000 ML IV SCH (11:52)
[2021-02-24 12:01] LABS: ALT/SGPT 23 U/L (12-78); BILIRUBIN,TOTAL 0.2 MG/DL (0.2-1.0); GLOMERULAR FILTRATION RATE > 60.0 (>60); LDH LACTATE DEHYDROGENASE 222 U/L (84-246); MAGNESIUM LEVEL 6.1 MG/DL (1.8-2.4)
--- NOTE | 2021-02-24 15:19 | IPNPDOC ---
Text Note Date of Service The patient was seen on 02/24/21. NOTE Vital Signs Label Value Date Time Respiratory Rate 18 bpm 02/24/21 1451 Pulse 83 02/24/21 1451 Blood Pressure Assessment 141/84 (103) 02/24/21 1451 Source Automatic Cuff (NIBP) Blood Pressure Assessment 145/83 (103) 02/24/21 1420 Source Automatic Cuff (NIBP) Respiratory Rate 18 bpm 02/24/21 1420 Pulse 85 02/24/21 1420 Pulse 85 02/24/21 1351 Respiratory Rate 20 bpm 02/24/21 1351 Blood Pressure Assessment 145/85 (105) 02/24/21 1351 Source Automatic Cuff (NIBP) Blood Pressure Assessment 159/87 (111) 02/24/21 1321 Source Automatic Cuff (NIBP) Respiratory Rate 18 bpm 02/24/21 1321 Pulse 84 02/24/21 1321 Patient Temperature 98.3 degrees F 02/24/21 1321 Temperature Source Temporal 02/24/21 1321 02/24/21 REVIEW PROGRESS PRE AUGMENTATION LABOR . BP NORMALIZED FEW CONTRACTIONS WITH LAST DOSE OF CYTOTEC CERVIX 2 CM SOFT -3 STATION STILL POSTERIOR CATEGORY 1 STRIP SAFE TO PROCEED VS,Fishbone, I+O VS, Fishbone, I+O Laboratory Tests 02/23/21 19:29 02/24/21 11:05 Vital Signs Date Time Temp Pulse Resp B/P (MAP) Pulse Ox O2 Delivery O2 Flow Rate FiO2 02/24/21 14:51 83 18 141/84 (103) 02/24/21 13:21 98.3 02/23/21 22:29 99 I&O- Last 24 Hours up to 6 AM 02/24/21 05:59 Intake Total 1548 ml Output Total 1930 ml Balance -382 ml Nico Escalante MD Feb 24, 2021 15:19
[2021-02-24] MEDS ORDERED: OXYTOCIN DRIP 30 UNITS in IV 1 EA IV SCH (15:20)
[2021-02-24] MEDS ORDERED: guaiFENesin ER 600 MG TAB PO ONE (17:40)
[2021-02-24] MEDS ORDERED: PILL CUTTER 1 EACH XX PRN (18:00)
[2021-02-24] MEDS: FAMOTIDINE 20 MG TAB PO SCH (18:11)
[2021-02-24] MEDS ORDERED: NIFEdipine 10 MG CAP PO ONE (18:55)
[2021-02-24] MEDS ORDERED: predniSONE 50 MG TAB PO ONE (20:30)
[2021-02-24 21:24] LABS: HEMATOCRIT 35.1 % (36.0-47.0); HEMOGLOBIN 12.1 g/dl (12.0-15.5); MEAN CORPUSCULAR HEMOGLOBIN 32.5 pg (27.0-33.0); MEAN CORPUSCULAR HGB CONC 34.5 g/dl (32.0-36.5); MEAN CORPUSCULAR VOLUME 94.4 fl (80.0-96.0); PLATELET COUNT, AUTOMATED 203 10^3/uL (150-450); RED BLOOD COUNT 3.72 10^6/uL (4.00-5.40); WHITE BLOOD COUNT 10.5 10^3/uL (4.0-10.0)
[2021-02-25] VITALS (37 sets, daily range): BP systolic 128–168; BP diastolic 52–96
[2021-02-25] MEDS: NS 1,000 ML IV SCH ×2 (00:02→11:03)
[2021-02-25] MEDS: MAG Sulf (OBGYN) 20GM/500ML 20,000 MG in IV 1 EA IV SCH ×3 (00:30→13:44)
[2021-02-25] MEDS: PENICILLIN G POTASSIUM IV 2.5 MU in IV 1 EA IV SCH ×3 (01:28→09:25)
[2021-02-25] MEDS ORDERED: MAGNESIUM SULFATE 4% INJ 20GM/500ML (40MG/ML) As Ordered ONE (03:23)
[2021-02-25] MEDS ORDERED: FENTANYL 2MCG/ML ROPIVACAINE 0.2% IN 0.9% NACL 100ML IVBAG As Ordered ONE (03:54)
--- NOTE | 2021-02-25 08:08 | IPNPDOC ---
Text Note Date of Service The patient was seen on 02/25/21. NOTE 35 yo at 34+6 weeks gestation with di/di twins admitted on 23Feb2021 for an IOL for pre eclampsia with severe features. She has been receiving IV magnesium. She received multiple doses of cervical ripening with cytotec and has been on a pitocin drip since yesterday afternoon. She is up to 14mU. She has required treatment for severely elevated blood pressures multiple times though her most recent pressures are stable. She has received BTMZ for lung maturity. Both babies are in cephalic presentation by admission US. In the room Emily reports feeling tired. She denies any headaches, RUQ pain, or visual changes. Chaperoned by RN Vitals - Mildly elevated BPs, afebrile, non tachycardic General - laying in bed, AAOX3, NAD Abdomen - Gravid uterus. No fundal tenderness. Cervix - 1/80/-2, posterior. OU - >75ml / hr FHR tracing - Baby A with BL 140, moderate variability. Baby B BL 130 moderate variability. Intermittent accels. No decels for both. Ctx Q5-9 minutes on toco. Progress has been slow and there has been minimal to no cervical change since her last exam yesterday afternoon. We reviewed continued attempt at vaginal delivery vs section. We discussed increased risk for hemorrhage given her twin gestation, prolonged use of pitocin, and pre eclampsia, regardless of delivery route. I offered her either c section or continued attempt at vaginal delivery. For now Emily desires to continue to attempt with vaginal delivery. Will plan to increase pitocin to max dose. Will AROM when feasible. All patient questions answered. Sangeetha Lowry, I+O Sangeetha MAN, I+O Laboratory Tests 02/24/21 11:05 02/24/21 21:16 Vital Signs Date Time Temp Pulse Resp B/P (MAP) Pulse Ox O2 Delivery O2 Flow Rate FiO2 02/25/21 06:00 18 02/25/21 05:58 90 138/75 (96) 02/25/21 04:00 98.4 02/23/21 22:29 99 I&O- Last 24 Hours up to 6 AM 02/25/21 06:00 Intake Total 3025.1 ml Output Total 4490 ml Balance -1464.9 ml DEUCE STEPHEN DO Feb 25, 2021 08:08
[2021-02-25] MEDS: valACYclovir HCL 500 MG TAB PO SCH ×3 (09:24→20:59)
[2021-02-25] MEDS: FAMOTIDINE 20 MG TAB PO SCH (09:25)
[2021-02-25] MEDS ORDERED: AZITHROMYCIN INJ 500 MG, VIAL MATE ADAPTER 1 EACH in NS 250 ML IV ONE (10:50)
[2021-02-25] MEDS ORDERED: ceFAZolin SOD 2 GM in IV 1 EA IV ONE (10:50)
[2021-02-25] MEDS ORDERED: BICITRA 30ML SOLN UDC PO ONE (11:02)
--- NOTE | 2021-02-25 11:14 | IPNPDOC ---
Text Note Date of Service The patient was seen on 02/25/21. NOTE Ms. Phillip was reporting increasing pelvic cramping and pressure. I went to her room for assessment. Chaperoned by RN Cervix: unchanged, /-2. FHR tracing - Cat I for both fetuses Pitocin at 20mU. Contractions still not consistent. We discussed the plan moving forward with continued pitocin vs section. I again discussed the risks of prolonged pitocin use and prolonged labor in the setting of pre eclampsia with severe features. Delivery, and even active labor, appears to be remote at this time. After a thorough discussion of all risks and benefits Ms. Phillip decided to proceed with section. We discussed specific risks of c sections to include, but not limited to, bleeding requiring blood transfusion, risk of infection, risk of injury to bowel, bladder, or other structures which could require additional surgery, risk of needing a hy sterectomy as a life saving measure, risk of injury to babies, and even risk of and/or maternal . She verbalized understanding and elected to proceed. She understands babies will require NICU attention after delivery. Will type and cross for 2U PRBCs before surgery. Ancef and Azithromycin for infection prophylaxis. precision crop manager to the OR. All patient and questions answered. Sangeetha Lowry, I+O Sangeetha MAN, I+O Laboratory Tests 02/24/21 11:05 02/24/21 21:16 Vital Signs Date Time Temp Pulse Resp B/P (MAP) Pulse Ox O2 Delivery O2 Flow Rate FiO2 02/25/21 09:57 90 18 143/83 (103) Room Air 02/25/21 09:27 98.5 02/23/21 22:29 99 I&O- Last 24 Hours up to 6 AM 02/25/21 06:00 Intake Total 3025.1 ml Output Total 4490 ml Balance -1464.9 ml DEUCE STEPHEN DO Feb 25, 2021 11:14
[2021-02-25 11:35] LABS: HEMATOCRIT 35.6 % (36.0-47.0); HEMOGLOBIN 11.9 g/dl (12.0-15.5); MEAN CORPUSCULAR HEMOGLOBIN 32.8 pg (27.0-33.0); MEAN CORPUSCULAR HGB CONC 33.4 g/dl (32.0-36.5); MEAN CORPUSCULAR VOLUME 98.1 fl (80.0-96.0); PLATELET COUNT, AUTOMATED 211 10^3/uL (150-450); RED BLOOD COUNT 3.63 10^6/uL (4.00-5.40); WHITE BLOOD COUNT 9.3 10^3/uL (4.0-10.0)
[2021-02-25] MEDS ORDERED: PHENYLephrine 500MCG 5ML (100MCG/ML) SYRINGE As Ordered ONE ×2 (12:11→13:01)
[2021-02-25] MEDS ORDERED: ePHEDrine SULFATE 25 MG/5 ML(5MG/ML) SYRINGE As Ordered ONE (12:11)
[2021-02-25] MEDS ORDERED: OXYTOCIN 30 UNITS IN 0.9% NaCl 500ML IV BAG (J2590) As Ordered ONE ×2 (12:11→13:37)
[2021-02-25] MEDS ORDERED: MORPHINE PRES-FREE INJ 10 MG/10 ML VIAL (J2274) As Ordered ONE (12:11)
[2021-02-25] MEDS ORDERED: ONDANSETRON 4MG/2ML VIAL IV PRN ×2 (12:32→14:05)
[2021-02-25] MEDS ORDERED: diphenhydrAMINE 50MG/ML VIAL (J1200) IV PRN (12:32)
[2021-02-25] MEDS ORDERED: NALOXONE INJ 0.4MG/1ML VIAL (J2310 PER 1MG) IV PRN ×2 (12:32)
[2021-02-25] MEDS ORDERED: NALBUPHINE HCL 10 MG/ML AMP (J2300) IV PRN (12:32)
[2021-02-25] MEDS ORDERED: ONDANSETRON 4MG/2ML VIAL As Ordered ONE (13:01)
[2021-02-25 13:16] LABS: CORD GAS ABE V -7.2; CORD GAS HCO3 V 20.1 MEQ/L; CORD GAS O2 SAT V 52.2 %; CORD GAS PCO2 V 46.9 mmHg; CORD GAS PH V 7.25 UNITS; CORD GAS PO2 V 22.2 mmHg; CORD GAS SBC V 17.6 MEQ/L; CORD GAS TCO2 V 21.5 MEQ/L
[2021-02-25 13:19] LABS: CORD GAS ABE A -9.1; CORD GAS PCO2 A 55.5 mmHg; CORD GAS PH A 7.174 UNITS; CORD GAS PO2 A 15.8 mmHg; CORD GAS SBC A 15.8 MEQ/L; CORD GAS TCO2 A 21.7 MEQ/L
[2021-02-25] MEDS ORDERED: KETOROLAC 60MG 2ML VIAL As Ordered ONE (13:21)
[2021-02-25 13:26] LABS: CORD GAS ABE A -8.2; CORD GAS HCO3 A 20.5 MEQ/L; CORD GAS O2 SAT A 45.3 %; CORD GAS PCO2 A 54.2 mmHg; CORD GAS PO2 A 21.5 mmHg; CORD GAS SBC A 16.8 MEQ/L; CORD GAS TCO2 A 22.1 MEQ/L
[2021-02-25 13:27] LABS: CORD GAS PH A 7.195 UNITS
[2021-02-25 13:30] LABS: CORD GAS ABE V -9.6; CORD GAS HCO3 V 16.9 MEQ/L; CORD GAS O2 SAT V 68.5 %; CORD GAS PCO2 V 39.3 mmHg; CORD GAS PH V 7.252 UNITS; CORD GAS PO2 V 28.7 mmHg; CORD GAS SBC V 16.3 MEQ/L; CORD GAS TCO2 V 18.1 MEQ/L
[2021-02-25] MEDS ORDERED: MEASLES,MUMPS,RUBELLA VACCINE INJ (MMR-II) (90707) SC SCH (13:30)
[2021-02-25] MEDS ORDERED: OXYTOCIN DRIP 30 UNITS in IV 1 EA IV SCH (13:30)
[2021-02-25] MEDS ORDERED: RHOGAM 300 MCG (1500 IU) INJ (J2790) IM SCH (13:30)
[2021-02-25] MEDS ORDERED: ONDANSETRON 4 MG TAB PO PRN (13:30)
[2021-02-25] MEDS ORDERED: PROMETHAZINE 25 MG TAB PO PRN (13:30)
[2021-02-25] MEDS ORDERED: MORPHINE 2 MG/ML 1ML VIAL (J2270) IV PRN (13:30)
[2021-02-25] MEDS ORDERED: oxyCODONE 5MG TAB PO PRN ×2 (13:30→14:05)
[2021-02-25] MEDS ORDERED: fentaNYL 100 MCG/2 ML INJECTION (J3010) As Ordered ONE (13:47)
[2021-02-25] MEDS: fentaNYL 100 MCG/2 ML INJECTION (J3010) IV PRN ×2 (13:54→14:32)
[2021-02-25] MEDS ORDERED: LR 1,000 ML IV SCH (14:05)
--- NOTE | 2021-02-25 14:17 | ROOPDOC ---
[facility] Report Of Operation Report of Operation DATE OF PROCEDURE: 02/25/21 PREPROCEDURE DIAGNOSES: 1. Di/Di twin gestation at 34+6 weeks gestation 2. Pre eclampsia with severe features, remote from delivery 3. Gestational diabetes 4. Obesity. POSTPROCEDURE DIAGNOSES: Same as above PROCEDURE: Primary low transverse section. SURGEON: Dr. Deuce Haile STOREHOUSE CLERK: Dr. Héctor Phillip, whose assistance with exposure, retraction, visualization, and delivery of the infants was essential to completion of the case ANESTHESIA: Spinal. FLUIDS: 1200 mL lactated Ringer's (LR). URINE OUTPUT: 100 mL. ESTIMATED BLOOD LOSS: 800 mL. COMPLICATIONS: None. ANTIBIOTICS: 2 grams of Ancef and 500 mg of azithromycin. OPERATIVE FINDINGS: Di/Di twin gestation, clear amniotic fluid in both sacs. Baby A cephalic presenting female that weighed 4 pounds 4 ounces. Baby B cephalic presenting male that weighed 4 pounds 3 ounces. Uterus was normal. Ovaries normal. Fallopian tubes normal bilaterally. DETAILED PROCEDURE DESCRIPTION: The risks, benefits, indications, and alternatives of the procedure were reviewed with the patient and informed consent was obtained. The patient was taken to the operating room where spinal anesthesia was obtained without difficulty. The patient was then prepped and draped in the usual sterile fashion in the dorsal supine position with a leftward tilt. A surgical time-out was performed in which the patient's identify and planned procedure were verified with the operative team. A Pfannenstiel skin incision was then made with a scalpel and carried through to the underlying layer of fascia. The fascia was incised in the midline and the incision was extended laterally with Upton scissors. The superior aspect of the fascial incision was grasped with Soo clamps, elevated, and the underlying rectus muscles were dissected off with a scalpel. Attention was then turned to the inferior aspect of this incision, which in a similar fashion, was grasped, tented up with Soo clamps, and the rectus muscles were dissected off with Upton scissors. The rectus muscles were then at the midline. The peritoneum was identified and entered digitally. The peritoneal incision was then extended horizontally and superiorly and the bladder was clearly identified. A Mobius self-containing retractor was then inserted into the abdomen as a means for exposure. The vesicouterine peritoneum was identified and entered sharply with a scalpel. This incision was then extended laterally and a bladder flap was created digitally. Next, the lower uterine segment was incised in a transverse fashion with the scalpel. The uterine incision was then extended manually. Baby A's amniotic sac was artificially ruptured and this was productive of clear fluid. The was in cephalic presentation and the head was delivered without difficulty followed easily by the remainder of the body. The infant's nose and mouth were suctioned with a bulb syringe and the cord was doubly clamped and cut. The was then handed off to the awaiting NICU team. Next, Baby B's amniotic sac was identified and artificially ruptured, which was productive of clear fluid. Baby B was also found to be in cephalic presentation. Baby B was then delivered atraumatically through the hysterotomy without difficulty followed easily by the remainder of the body. Baby B's nose and mouth were suctioned with a bulb syringe and the cord was doubly clamped and cut. Baby B was then handed off to the awaiting NICU team. The entire placental complex, which was comprised of both placentas fused together, was then removed manually. The uterus was then exteriorized and cleared of all clots and debris. 0.2 mg of intramuscular (IM) Methergine was given due to initial uterine atony. Pitocin was bolused as well. The uterine incision was then repaired with #0 Monocryl suture in a running locked fashion. A second layer of #0 Monocryl was then used to imbricate the hysterotomy in a vertical fashion. Inspection revealed excellent hemostasis. The posterior cul-de-sac was then irrigated to good effect. The hysterotomy was again inspected and found to be hemostatic. The paracolic gutters were then inspected and cleared of all clots and debris. Excellent hemostasis at the hysterotomy was again assured. The Mobius self-containing retractor was then removed from the abdomen. The peritoneum was then closed with 3-0 vicryl suture in a running fashion. The fascia was closed with #0 Vicryl suture in a running fashion. The subcutaneous fat was closed with #3-0 Vicryl suture in a running fashion. The skin was closed with #4-0 Monocryl suture in a subcuticular fashion. The incision was then dressed with Steri-Strips and an optifoam dressing was applied. At the completion of the case a bimanual exam was performed which revealed good uterine tone and minimal vaginal bleeding. The patient tolerated the procedure well. Sponge, lap, instrument, and needle counts were correct times three. The patient was taken to the recovery room in stable condition. DEUCE HAILE DO Feb 25, 2021 14:17
[2021-02-25] MEDS: METOCLOPRAMIDE INJ 10MG/2ML VIAL (J2765 PER 1) IV PRN ×2 (16:32→22:46)
[2021-02-25] MEDS: KETOROLAC 30 MG/ML 1ML VIAL IV SCH (18:21)
[2021-02-25] MEDS ORDERED: ENOXAPARIN 40MG/0.4ML SYRINGE (J1650 PER 10MG) SC SCH (19:00)
[2021-02-25] MEDS ORDERED: predniSONE 20 MG TAB PO ONE (20:30)
[2021-02-25] MEDS: ENOXAPARIN 40MG/0.4ML SYRINGE (J1650 PER 10MG) SC SCH (21:42)
[2021-02-25 22:59] LABS: HEMATOCRIT 30.1 % (36.0-47.0); HEMOGLOBIN 10.2 g/dl (12.0-15.5); MEAN CORPUSCULAR HEMOGLOBIN 32.9 pg (27.0-33.0); MEAN CORPUSCULAR HGB CONC 33.9 g/dl (32.0-36.5); MEAN CORPUSCULAR VOLUME 97.1 fl (80.0-96.0); PLATELET COUNT, AUTOMATED 187 10^3/uL (150-450); WHITE BLOOD COUNT 9.9 10^3/uL (4.0-10.0)
[2021-02-25 23:28] LABS: ALBUMIN 1.8 GM/DL (3.2-5.2); ALT/SGPT 18 U/L (12-78); BILIRUBIN,TOTAL 0.2 MG/DL (0.2-1.0); BLOOD UREA NITROGEN 10 MG/DL (7-18); CALCIUM LEVEL 6.9 MG/DL (8.5-10.1); CARBON DIOXIDE LEVEL 21 MEQ/L (21-32); CHLORIDE LEVEL 112 MEQ/L (98-107); CREATININE FOR GFR 0.78 MG/DL (0.55-1.30); GLOMERULAR FILTRATION RATE > 60.0 (>60); GLUCOSE, FASTING 124 MG/DL (70-100); MAGNESIUM LEVEL 7.7 MG/DL (1.8-2.4); POTASSIUM SERUM 4.3 MEQ/L (3.5-5.1); SODIUM LEVEL 141 MEQ/L (136-145); TOTAL PROTEIN 4.6 GM/DL (6.4-8.2)
[2021-02-26] VITALS (12 sets, daily range): BP systolic 116–164; BP diastolic 66–94
[2021-02-26] MEDS: KETOROLAC 30 MG/ML 1ML VIAL IV SCH ×2 (01:30→06:40)
[2021-02-26] MEDS: MAG Sulf (OBGYN) 20GM/500ML 20,000 MG in IV 1 EA IV SCH (06:40)
--- NOTE | 2021-02-26 07:15 | IPNPDOC ---
Progress Note Date of Service: Feb 26, 2021 Progress Note 35 yo PPD#1 s/p uncomplicated PLTCS yesterday afternoon at 34+6 weeks gestation for di/di twins and pre eclampsia with severe features remote from delivery. Babies are in the NICU and doing well. Emily remains on a magnesium drip for seizure prophylaxis. No acute events overnight. This morning Emily reports feeling better. She had nausea postoperatively yesterday but this seems to be getting better. She has not yet been ambulatory. She is now tolerating sips of water. Pain is well controlled. Lochia is minimal. Vitals - mildly elevated BPs. No severe ranges. Afebrile, non tachycardic General - AAXO3, laying in bed, NAD Abdomen - No fundal tenderness. Incision covered with optifoam dressing. Minimal strikethrough. Appropriate tenderness to palpation. Extremities - 1+ edema UO - adequate, 50-70 ml/ hr via lane Labs: pending AM labs. Evening CBC and CMP stable. Mag level 7.7 yesterday evening. Overall Emily is doing well. Plan to continue magnesium for 24 hours , which is until ~1pm this afternoon. Follow up AM labs. Mag was decreased to 1gm / hr given the level. Continue clear liquid diet and monitor BPs closely. She may require antihypertensives at some point. Daily prophylactic lovenox. SCDs until ambulatory. Continue routine / postoperative care. All questions answered. Mic VS, I&O, 24H, Sangeetha Vital Signs/I&O Vital Signs Date Time Temp Pulse Resp B/P (MAP) Pulse Ox O2 Delivery O2 Flow Rate FiO2 02/26/21 03:15 99.0 63 18 154/94 (114) Room Air 02/25/21 20:00 98 I&O- Last 24 Hours up to 6 AM 02/26/21 05:59 Intake Total 3382.0 ml Output Total 3190 ml Balance 192.0 ml Laboratory Data 24H LABS Laboratory Tests 2 02/25/21 09:22: Bedside Glucose (Misc Panel) 105 02/25/21 11:13: Nucleated Red Blood Cells % (auto) 0.0 02/25/21 13:10: Cord Arterial Blood pH 7.174, Cord Arterial Blood PCO2 55.5, Cord Arterial Blood PO2 15.8, Cord Arterial Blood HCO3 20.0, Cord Arterial Blood Total CO2 21.7, Cord Arterial Blood Base Excess -9.1, Cord Arterial Base Excess (Standard 15.8, Cord Arterial Bld Oxygen Saturation 29.0, Cord Venous Blood pH 7.250, Cord Venous Blood PCO2 46.9, Cord Venous Blood PO2 22.2, Cord Venous Blood HCO3 20.1, Cord Venous Blood Total CO2 21.5, Cord Venous Base Excess (Actual) -7.2, Cord Venous Base Excess (Standard) 17.6, Cord Venous Blood Oxygen Saturation 52.2 02/25/21 13:20: Cord Arterial Blood pH 7.195, Cord Arterial Blood PCO2 54.2, Cord Arterial Blood PO2 21.5, Cord Arterial Blood HCO3 20.5, Cord Arterial Blood Total CO2 22.1, Cord Arterial Blood Base Excess -8.2, Cord Arterial Base Excess (Standard 16.8, Cord Arterial Bld Oxygen Saturation 45.3, Cord Venous Blood pH 7.252, Cord Venous Blood PCO2 39.3, Cord Venous Blood PO2 28.7, Cord Venous Blood HCO3 16.9, Cord Venous Blood Total CO2 18.1, Cord Venous Base Excess (Actual) -9.6, Cord Venous Base Excess (Standard) 16.3, Cord Venous Blood Oxygen Saturation 68.5 02/25/21 22:21: Nucleated Red Blood Cells % (auto) 0.0, Anion Gap 8, Glomerular Filtration Rate > 60.0, Calcium Level 6.9#L, Magnesium Level 7.7*H, Total Bilirubin 0.2, Aspartate Amino Transf (AST/SGOT) 18, Alanine Aminotransferase (ALT/SGPT) 18, Alkaline Phosphatase 173H, Total Protein 4.6L, Albumin 1.8L, Albumin/Globulin Ratio 0.6L CBC/BMP Laboratory Tests 02/25/21 11:13 02/25/21 22:21 DEUCE STEPHEN DO Feb 26, 2021 07:15
[2021-02-26 07:17] LABS: HEMOGLOBIN 9.2 g/dl (12.0-15.5); MEAN CORPUSCULAR HEMOGLOBIN 32.5 pg (27.0-33.0); MEAN CORPUSCULAR HGB CONC 34.1 g/dl (32.0-36.5); MEAN CORPUSCULAR VOLUME 95.4 fl (80.0-96.0); PLATELET COUNT, AUTOMATED 183 10^3/uL (150-450); RED BLOOD COUNT 2.83 10^6/uL (4.00-5.40); WHITE BLOOD COUNT 9.6 10^3/uL (4.0-10.0)
[2021-02-26 07:55] LABS: ALBUMIN 1.7 GM/DL (3.2-5.2); ALT/SGPT 15 U/L (12-78); BILIRUBIN,TOTAL 0.1 MG/DL (0.2-1.0); BLOOD UREA NITROGEN 10 MG/DL (7-18); CALCIUM LEVEL 6.6 MG/DL (8.5-10.1); CARBON DIOXIDE LEVEL 23 MEQ/L (21-32); CHLORIDE LEVEL 111 MEQ/L (98-107); CREATININE FOR GFR 0.72 MG/DL (0.55-1.30); GLOMERULAR FILTRATION RATE > 60.0 (>60); GLUCOSE, FASTING 115 MG/DL (70-100); MAGNESIUM LEVEL 6.4 MG/DL (1.8-2.4); POTASSIUM SERUM 4.6 MEQ/L (3.5-5.1); SODIUM LEVEL 140 MEQ/L (136-145); TOTAL PROTEIN 4.5 GM/DL (6.4-8.2)
[2021-02-26] MEDS: valACYclovir HCL 500 MG TAB PO SCH ×3 (08:05→20:53)
[2021-02-26] MEDS: FAMOTIDINE 20 MG TAB PO SCH (08:05)
[2021-02-26] MEDS: guaiFENesin ER 600 MG TAB PO SCH ×2 (08:05→20:53)
[2021-02-26] MEDS: PRENATAL VITAMINS CHEWABLE TABLET PO SCH (08:05)
[2021-02-26] MEDS: IBUPROFEN 800 MG TAB PO SCH ×2 (16:58→23:03)
[2021-02-26] MEDS: LABETALOL 200 MG TAB PO SCH (18:52)
[2021-02-26] MEDS: ACETAMINOPHEN 500 MG TAB PO PRN (18:52)
[2021-02-26] MEDS ORDERED: predniSONE 10 MG TAB PO ONE (20:30)
[2021-02-26] MEDS: ENOXAPARIN 40MG/0.4ML SYRINGE (J1650 PER 10MG) SC SCH (20:54)
[2021-02-26] MEDS ORDERED: LR 500 ML IV ONE (21:00)
[2021-02-27 02:00] VITALS: BP 120/67
[2021-02-27 06:00] VITALS: BP 107/54
[2021-02-27] MEDS: SIMETHICONE 80MG CHEW TAB PO PRN ×2 (06:01→10:55)
[2021-02-27] MEDS: IBUPROFEN 800 MG TAB PO SCH ×3 (06:01→22:52)
[2021-02-27] MEDS: oxyCODONE 5MG TAB PO PRN ×3 (06:01→20:54)
[2021-02-27] MEDS: LABETALOL 200 MG TAB PO SCH (07:44)
[2021-02-27 07:45] VITALS: BP 131/68
[2021-02-27] MEDS: guaiFENesin ER 600 MG TAB PO SCH ×2 (08:17→20:53)
[2021-02-27] MEDS: DOCUSATE SODIUM 100MG CAPSULE PO SCH ×2 (08:17→20:53)
[2021-02-27] MEDS: PRENATAL VITAMINS CHEWABLE TABLET PO SCH (08:17)
[2021-02-27] MEDS: valACYclovir HCL 500 MG TAB PO SCH ×3 (08:17→20:53)
[2021-02-27] MEDS: FAMOTIDINE 20 MG TAB PO SCH (08:18)
--- NOTE | 2021-02-27 08:21 | IPNPDOC ---
Progress Note Date of Service: Feb 27, 2021 Day#: 2 Progress Note 35 yo PPD#2 s/p uncomplicated PLTCS at 34+6 weeks gestation for di/di twins and pre eclampsia with severe features remote from delivery. Babies are in the NICU and doing well. she got off magnesium yesterday at t 1230. her lane was removed last night at around 7 pm and she has already met her DTV. I started her on PO HTN meds due to persistent systolics in the 150's. since then BP has remained normal. I had ordered 200mg BIB, but will hold the morning dose and if pressure go up above 140/90, can give 100mg of labetalol- i discussed this with her nurse. This morning Emily reports feeling better. She has ambulated, and had some Pain with that. she has already had a BM this morning. Lochia is minimal. Vitals - normotensive since starting on labetalol. Afebrile, non tachycardic General - AAXO3, laying in bed, NAD Abdomen - some fundal tenderness. Incision covered with optifoam dressing. Minimal strikethrough. Appropriate tenderness to palpation. Extremities - 1+ edema ASSESSMENT: 35 yo PPD#2 s/p uncomplicated PLTCS at 34+6 weeks gestation for di/di twins and pre eclampsia with severe features remote from delivery. Babies are in the NICU and doing well. she got off magnesium yesterday at t 1230. Vitals within normal limits, afebrile, hemodynamically stable with no evidence of infection. some fundal tenderness but no fever. suspect her pain is not well controlled, can reevaluate after she gets her pain medication. continue to monitor for any possible development of endometritis PLAN: 1. Discharge to home tomorrow if continues to improve appropriately 2. OXYCODON Tylenol and Motrin for pain. 3. Encourage breast feeding and ambulation. 4. now written for 200mg Labetalol BID, BUT WILL CHANGE TO 100MG bid instead. 5. Routine PP visit in 2 AND 6 weeks in clinic. 6. Discussed return precautions at length. VS, I&O, 24H, Fishbone Vital Signs/I&O Vital Signs Date Time Temp Pulse Resp B/P (MAP) Pulse Ox O2 Delivery O2 Flow Rate FiO2 02/27/21 07:45 83 131/68 (89) 02/27/21 06:31 16 Room Air 02/27/21 06:00 98.4 98 I&O- Last 24 Hours up to 6 AM 02/27/21 06:00 Intake Total 420 ml Output Total 1425 ml Balance -1005 ml DIANNE NASH MD Feb 27, 2021 08:21
[2021-02-27] MEDS: LABETALOL 100MG TAB PO SCH ×2 (09:03→20:55)
[2021-02-27 10:08] VITALS: BP 145/74
[2021-02-27] MEDS: ACETAMINOPHEN 500 MG TAB PO PRN (10:55)
[2021-02-27 17:54] VITALS: BP 143/78
[2021-02-27] MEDS ORDERED: predniSONE 20 MG TAB PO ONE (20:30)
[2021-02-27] MEDS: ENOXAPARIN 40MG/0.4ML SYRINGE (J1650 PER 10MG) SC SCH (20:55)
[2021-02-27 22:00] VITALS: BP 141/75
[2021-02-28 02:00] VITALS: BP 119/70
[2021-02-28 06:00] VITALS: BP 121/64
[2021-02-28] MEDS: IBUPROFEN 800 MG TAB PO SCH (06:18)
[2021-02-28 07:40] LABS: HEMATOCRIT 24.6 % (36.0-47.0); HEMOGLOBIN 8.2 g/dl (12.0-15.5); MEAN CORPUSCULAR HEMOGLOBIN 32.5 pg (27.0-33.0); MEAN CORPUSCULAR HGB CONC 33.3 g/dl (32.0-36.5); MEAN CORPUSCULAR VOLUME 97.6 fl (80.0-96.0); PLATELET COUNT, AUTOMATED 198 10^3/uL (150-450); RED BLOOD COUNT 2.52 10^6/uL (4.00-5.40)
[2021-02-28 08:41] VITALS: BP 121/64
[2021-02-28] MEDS: LABETALOL 100MG TAB PO SCH (08:41)
[2021-02-28] MEDS: PRENATAL VITAMINS CHEWABLE TABLET PO SCH (08:41)
[2021-02-28] MEDS: valACYclovir HCL 500 MG TAB PO SCH (08:41)
[2021-02-28] MEDS: DOCUSATE SODIUM 100MG CAPSULE PO SCH (08:41)
[2021-02-28] MEDS: guaiFENesin ER 600 MG TAB PO SCH (08:42)
[2021-02-28] MEDS: FAMOTIDINE 20 MG TAB PO SCH (08:42)
[2021-02-28] MEDS: oxyCODONE 5MG TAB PO PRN (08:42)
[2021-02-28] MEDS ORDERED: predniSONE 10 MG TAB PO SCH (09:00)
[2021-02-28 10:11] VITALS: BP 142/81
[2021-02-28] MEDS ORDERED: IBUP80TA PO (11:26)
[2021-02-28] MEDS ORDERED: OXYC-517 PO (11:26)
[2021-02-28] MEDS ORDERED: ACET-683 PO (11:26)
--- NOTE | 2021-02-28 12:57 | DS.PDOC ---
Discharge Summary General Date of Admission Feb 23, 2021 at 19:16 Date of Discharge Feb 28, 2021 Discharge Summary HOSPITAL COURSE: Emily is a 35 yo G2 now P2 who was admitted on 23Feb2021 for an IOL at 34+4 weeks gestation with di/di twins for pre eclampsia with severe features. Ultimately, she made no progress in her IOL and desired to proceed with section. She underwent an uncomplicated PLTCS on 25Feb2021. Her blood pressures stabilized after delivery ultimately on antihypertensive m edication. She received IV magnesium for maternal seizure prophylaxis. Her course was otherwise unremarkable after controlling her blood pressure. She met all appropriate discharge criteria on her day of discharge. She was ambulating without problems, had minimal lochia, had minimal pain, was tolerating PO, was voiding spontaneously, and was passing gas. DISCHARGE MEDICATIONS: Please see below. ALLERGIES: Please see below. PHYSICAL EXAMINATION ON DISCHARGE: VITAL SIGNS: Please see below. GENERAL: AAOX3, sitting up in bed, NAD ABDOMINAL EXAMINATION: Soft, non distended. Fundus firm at U-2. No fundal tenderness. Optifoam dressing in place. Minimal strikethrough. No tenderness to palpation. EXTREMITIES: 1+ edema PSYCHIATRIC EXAMINATION: Affect appropriate LABORATORY DATA: Please see below. ACTIVITY: Pelvic rest for 6 weeks, no heavy lifting for 6 weeks DIET: Regular DISCHARGE PLAN: Discharge home DISPOSITION: Discharge home on 28Feb2021. DISCHARGE INSTRUCTIONS: 1. Pelvic rest for 6 weeks. 2. No lifting greater than 10 pounds 3. Take your medication as prescribed 4. gear hobber set up operator additional medication at [facility] today. 5. Walk in Blood pressure check in the [facility] office on Monday, 02Mar2021. ITEMS TO FOLLOWUP ON ON OUTPATIENT: 1. Incision check in 2 weeks 2. gear hobber set up operator medication at [facility]. 3. Walk in blood pressure check 2 days from discharge from hospital (02Mar2021 in the [place] [facility] office.) DISCHARGE CONDITION: Stable. TIME SPENT ON DISCHARGE: Greater than 20 minutes. Deuce Haile DO, FACOG Vital Signs/I&Os Vital Signs Date Time Temp Pulse Resp B/P (MAP) Pulse Ox O2 Delivery O2 Flow Rate FiO2 02/28/21 10:11 98.5 82 18 142/81 (101) 100 Room Air Laboratory Data Labs 24H Laboratory Tests 2 02/28/21 07:19: Nucleated Red Blood Cells % (auto) 0.9H CBC/BMP Laboratory Tests 02/28/21 07:19 Discharge Medications Scheduled Famotidine (Famotidine) 10 Mg Tablet, 1 TAB PO DAILY, (Reported) Folic Acid (Folic Acid) 1 Mg Tablet, 1 TAB PO DAILY, (Reported) Ibuprofen (Ibuprofen) 800 Mg Tablet, 800 MG PO Q8H Vit,Calc76/Iron/Folic (Prenatabs Rx Tablet) 1 Each Tablet, 1 TAB PO DAILY, (Reported) Scheduled PRN Acetaminophen (Acetaminophen) 500 Mg Tablet, 1,000 MG PO Q6HP PRN for PAIN LEVEL 6-10 Oxycodone HCl (Oxycodone HCl) 5 Mg Tablet, 5 MG PO Q6H PRN for MODERATE PAIN (PS 5-7) Miscellaneous Medications Calcium Carbonate (Tums) 200 Mg Tab.chew, (Reported) Allergies Coded Allergies: No Known Drug Allergies (Verified Allergy, Unknown, 09/29/20) DEUCE HAILE DO Feb 28, 2021 12:57
== END 2021-02-28 13:05 | disposition home or self-care (01) | DRG 772 ==
LOC: M LDO 17:25 → M LDI 19:16 → M OBS 02-25 15:16
PROVIDERS: ADMIT Obstetrics & Gynecology; ATTEND Obstetrics & Gynecology
PROC: 3E0P7GC Introduction of Other Therapeutic Substance into Female Reproductive, Via Natural or Artificial Opening (ICD-10-PCS; 2021-02-23)
PROC: 10D00Z1 Extraction of Products of Conception, Low, Open Approach (ICD-10-PCS; principal; 2021-02-25 13:13)
DX: O14.14 Severe pre-eclampsia complicating childbirth (principal); O99.354 Diseases of the nervous system complicating childbirth; Z3A.34 34 weeks gestation of pregnancy; G51.0 Bell's palsy; O24.420 Gestational diabetes mellitus in childbirth, diet controlled; O30.043 Twin pregnancy, dichorionic/diamniotic, third trimester; O99.214 Obesity complicating childbirth; E66.9 Obesity, unspecified; Z37.2 Twins, both liveborn

== ENCOUNTER → 2021-02-23 | Outpatient (CLI) | payer OTHER ==
[~2021-02-23] MED LIST changes: +PRED10TA2 PO; +TUMS500C; +VALA1TAB5 PO
--- NOTE | 2021-02-23 18:20 | REPVR ---
PROCEDURE INFORMATION: Exam: MR Head Without Contrast Exam date and time: 02/23/2021 5:03 PM Age: 35 years old Clinical indication: Speech disturbance; Slurred speech; Additional info: Neuro symptoms TECHNIQUE: Imaging protocol: MR of the head without contrast. COMPARISON: No relevant prior studies available. FINDINGS: Brain: There is no restricted diffusion to suggest acute infarction. Increased signal on the T2 weighted sequence at the craniocervical junction is most likely artifact series 601, image 1 frame 3. There are no white matter lesions or acute intracranial hemorrhage and no prior microhemorrhages. Pituitary: The pituitary gland is visualized on the sagittal T1 series 301, image 1 frames 12, 13 where it appears enlarged measuring 9.3 mm cranial caudal. Lies directly along the inferior margin of the optic nerves. No coronal images were performed and is not well assessed on the axial sequences. Cerebral ventricles: No ventriculomegaly. Bones/joints: See "Brain" finding. Paranasal sinuses: Mild mucoperiosteal thickening in the ethmoid air cells without air-fluid levels in the paranasal sinuses. Mastoid air cells: No mastoid effusions. Orbital cavity: Unremarkable. Soft tissues: Unremarkable. IMPRESSION: No acute intracranial findings. There may be mild enlargement of the pituitary gland which is not well assessed on this study. Electronically signed by: Ijeoma Blankenship On 02/23/2021 18:20:15 PM
--- NOTE | 2021-02-23 18:24 | REPVR ---
PROCEDURE INFORMATION: Exam: MRA Head Without Contrast; Venography Exam date and time: 02/23/2021 5:03 PM Age: 35 years old Clinical indication: Speech disturbance; Slurred speech; Additional info: 34 week preg gestation / mrv TECHNIQUE: Imaging protocol: Magnetic resonance angiography of the head without contrast. Exam focused on the veins. COMPARISON: No relevant prior studies available. FINDINGS: Superior sagittal sinus: Patent. Straight sinus: Patent. Transverse sinuses: Patent. Sigmoid sinuses: Patent. Internal jugular veins: Visualized segment patent. IMPRESSION: No venous thrombus. Electronically signed by: Ijeoma Blankenship On 02/23/2021 18:24:12 PM
== END ==
LOC: M RAD 15:22
PROVIDERS: ATTEND Obstetrics & Gynecology
DX: O16.1 Unspecified maternal hypertension, first trimester (principal)

== ENCOUNTER → 2021-02-23 | Outpatient (CLI) | payer OTHER ==
[2021-02-23 13:54] LABS: APPEARANCE, URINE HAZY (CLEAR); BACTERIA, URINE AUTO NEGATIVE (NEGATIVE); BILIRUBIN, URINE AUTO NEGATIVE (NEGATIVE); BLOOD, URINE BLOOD NEGATIVE (NEGATIVE); COLOR, URINE STRAW (YELLOW); GLUCOSE, URINE (UA) AUTO NEGATIVE (NEGATIVE); KETONE, URINE AUTO NEGATIVE (NEGATIVE); LEUKOCYTE ESTERASE, URINE AUTO NEGATIVE (NEGATIVE); NITRITE, URINE AUTO NEGATIVE (NEGATIVE); PROTEIN, URINE AUTO NEGATIVE (NEGATIVE); RBC, URINE AUTO 1 /HPF (0-3); SPECIFIC GRAVITY URINE AUTO 1.008 (1.002-1.035); SQUAMOUS EPITHELIAL CELL UR AU 8 /HPF (0-6); UROBILINOGEN, URINE AUTO 0.2 mg/dL (0.0-2.0); WBC, URINE AUTO 1 /HPF (0-3)
[2021-02-23 13:55] LABS: BASO % 0.2 % (0.0-1.0); EOS % 0.5 % (0.0-3.0); HEMATOCRIT 36.3 % (36.0-47.0); HEMOGLOBIN 12.3 g/dl (12.0-15.5); LYMPH # 2.1 10^3/uL (1.5-5.0); LYMPH % 25.5 % (24.0-44.0); MEAN CORPUSCULAR HEMOGLOBIN 32.5 pg (27.0-33.0); MEAN CORPUSCULAR HGB CONC 33.9 g/dl (32.0-36.5); MONO # 0.7 10^3/uL (0.0-0.8); MONO % 8.6 % (2.0-8.0); NEUTROPHILS # 5.3 10^3/uL (1.5-8.5); NEUTROPHILS % 64.6 % (36.0-66.0); PLATELET COUNT, AUTOMATED 203 10^3/uL (150-450); RED BLOOD COUNT 3.78 10^6/uL (4.00-5.40); WHITE BLOOD COUNT 8.2 10^3/uL (4.0-10.0)
[2021-02-23 14:23] LABS: CREATININE,RANDOM URINE 47.8 MG/DL
[2021-02-23 14:25] LABS: ALBUMIN 2.2 GM/DL (3.2-5.2); ALT/SGPT 23 U/L (12-78); BILIRUBIN,TOTAL 0.2 MG/DL (0.2-1.0); BLOOD UREA NITROGEN 8 MG/DL (7-18); CALCIUM LEVEL 9.2 MG/DL (8.5-10.1); CARBON DIOXIDE LEVEL 23 MEQ/L (21-32); CHLORIDE LEVEL 112 MEQ/L (98-107); CREATININE FOR GFR 0.69 MG/DL (0.55-1.30); GLOMERULAR FILTRATION RATE > 60.0 (>60); GLUCOSE, FASTING 100 MG/DL (70-100); LDH LACTATE DEHYDROGENASE 210 U/L (84-246); POTASSIUM SERUM 4.4 MEQ/L (3.5-5.1); SODIUM LEVEL 141 MEQ/L (136-145); TOTAL PROTEIN 5.5 GM/DL (6.4-8.2); URIC ACID 5.1 MG/DL (2.6-6.0)
[2021-02-23 15:02] LABS: TOTAL PROTEIN,RANDOM URINE 15.3 MG/DL (0.0-12.0)
== END ==
LOC: M LAB 12:24
PROVIDERS: ATTEND Obstetrics & Gynecology
DX: O16.1 Unspecified maternal hypertension, first trimester (principal)